=== PATIENT | female | born 1940 | race Hispanic/Latino ===

== ENCOUNTER 2017-08-10 12:56 | Emergency (ER) | payer MEDICARE ==
[2017-08-10 13:17] LABS: APPEARANCE,URINE Clear (CLEAR); BILIRUBIN,URINE Negative (NEGATIVE); COLOR,URINE Yellow (YELLOW); GLUCOSE, URINE (UA) Negative (NEGATIVE); KETONES,URINE Trace mg/dL (NEGATIVE); LEUKOCYTE ESTERASE ,URINE Trace (NEGATIVE); NITRATE,URINE Negative (NEGATIVE); OCCULT BLOOD,URINE Negative (NEGATIVE); PH,URINE 5.5 (5.0-8.0); PROTEIN,URINE Negative (NEGATIVE); UROBILINOGEN,URINE 0.2 mg/dL (0.2-1.0)
[2017-08-10 13:28] LABS: BASOPHILS % (AUTO) 0.5 % (0.0-5.0); EOSINOPHILS % (AUTO) 0.6 % (0.0-8.0); HEMATOCRIT 39.9 % (36-48); LYMPHOCYTES % (AUTO) 7.2 % (21.0-51.0); MEAN CORPUSCULAR HEMOGLOBIN 30.5 pg (27.0-33.0); MEAN CORPUSCULAR HGB CONC 34.4 g/dL (32.0-36.0); MEAN CORPUSCULAR VOLUME 88.5 fL (79-99); MONOCYTES % (AUTO) 5.4 % (3.0-13.0); NEUTROPHILS % (AUTO) 86.3 % (40.0-77.0); PLATELET COUNT (AUTO) 211 K/uL (130-400); RED BLOOD CELL COUNT(AUTO) 4.51 MIL/uL (4.00-5.50); RED CELL DISTRIBUTION WIDTH 12.9 % (11.0-15.5); WHITE BLOOD COUNT (AUTO) 10.6 K/uL (4.8-10.8)
[2017-08-10] MEDS ORDERED: ONDANSETRON HCL 4 MG/2 ML VIAL ONE (13:34)
[2017-08-10] MEDS ORDERED: KETOROLAC TROMETHAMINE 15MG/ML ONE (13:34)
[2017-08-10] MEDS ORDERED: SODIUM CHLORIDE 0.9% 1000ML 1,000 ML IV ONE (13:34)
[2017-08-10 13:38] LABS: CREATININE 0.7 mg/dL (0.5-1.5); POTASSIUM 3.7 mmol/L (3.5-5.1)
[2017-08-10 13:43] LABS: ALBUMIN 3.9 g/dL (3.5-5.0); BILIRUBIN,TOTAL 0.6 mg/dL (0.2-1.0); TOTAL PROTEIN, SERUM 7.8 g/dL (6.0-8.3)
[2017-08-10 13:46] LABS: WBC,URINE None Seen /HPF (0-1)
[2017-08-10 13:47] LABS: BACTERIA,URINE Rare /HPF (None Seen); SQUAMOUS EPITHELIAL CELL,UR Rare /LPF (0-2)
[2017-08-10 13:54] LABS: AMYLASE 43 U/L (25-115); CREATINE KINASE MB < 0.5 ng/mL (0.5-3.6); CREATINE KINASE, TOTAL 53 U/L (21-232); LIPASE 132 U/L (114-286)
[2017-08-10] MEDS ORDERED: LIDOCAINE HCL 2% VISCOUS 15 ML UDCUP ONE (13:56)
[2017-08-10] MEDS ORDERED: MAG HYDROX/AL HYDROX/SIMETH ES 30 ML SUSP UDCUP ONE (13:57)
== END 2017-08-10 14:49 | disposition home or self-care (01) ==
LOC: EDH 12:56
DX: M54.5 Low back pain (principal); J09.X2 Influenza due to identified novel influenza A virus with other respiratory manifestations; K21.9 Gastro-esophageal reflux disease without esophagitis; E11.9 Type 2 diabetes mellitus without complications; I10 Essential (primary) hypertension; R11.2 Nausea with vomiting, unspecified; Z88.6 Allergy status to analgesic agent; Z88.8 Allergy status to other drugs, medicaments and biological substances; Z90.49 Acquired absence of other specified parts of digestive tract
CPT/HCPCS: 36415; 71010; 80053; 81001; 82150; 82550; 82553; 83690; 84484; 85025; 87804 ×2; 93005; 96361; 96374; 96375; 99285; J1885; J2405; J7030

== ENCOUNTER 2018-08-13 15:55 | Emergency (ER) | payer MEDICARE ==
[2018-08-13 17:06] LABS: BASOPHILS % (AUTO) 0.3 % (0.0-5.0); EOSINOPHILS % (AUTO) 0.3 % (0.0-8.0); HEMATOCRIT 41.2 % (36-48); LYMPHOCYTES % (AUTO) 9.3 % (21.0-51.0); MEAN CORPUSCULAR HEMOGLOBIN 30.6 pg (27.0-33.0); MEAN CORPUSCULAR HGB CONC 34.8 g/dL (32.0-36.0); MEAN CORPUSCULAR VOLUME 87.9 fL (79-99); MONOCYTES % (AUTO) 4.3 % (3.0-13.0); NEUTROPHILS % (AUTO) 85.8 % (40.0-77.0); NUCLEATED RED BLOOD CELLS 0.1 % (0.0-0.19); PLATELET COUNT (AUTO) 241 K/uL (130-400); RED BLOOD CELL COUNT(AUTO) 4.69 MIL/uL (4.00-5.50); RED CELL DISTRIBUTION WIDTH 12.9 % (11.0-15.5); WHITE BLOOD COUNT (AUTO) 10.4 K/uL (4.8-10.8)
[2018-08-13 17:12] LABS: CREATININE 0.7 mg/dL (0.5-1.5); POTASSIUM 3.8 mmol/L (3.5-5.1)
[2018-08-13 17:16] LABS: ALBUMIN 3.9 g/dL (3.5-5.0); BILIRUBIN,TOTAL 0.7 mg/dL (0.2-1.0); TOTAL PROTEIN, SERUM 7.9 g/dL (6.0-8.3)
[2018-08-13] MEDS ORDERED: LIDOCAINE HCL 2% VISCOUS 15 ML UDCUP ONE (17:54)
[2018-08-13] MEDS ORDERED: MAG HYDROX/AL HYDROX/SIMETH ES 30 ML SUSP UDCUP ONE (17:55)
[2018-08-13] MEDS ORDERED: ONDANSETRON HCL 4 MG/2 ML VIAL ONE (17:55)
[2018-08-13 18:23] LABS: APPEARANCE,URINE Clear (CLEAR); BILIRUBIN,URINE Negative (NEGATIVE); COLOR,URINE Yellow (YELLOW); GLUCOSE, URINE (UA) Negative (NEGATIVE); KETONES,URINE 15 mg/dL (NEGATIVE); LEUKOCYTE ESTERASE ,URINE Negative (NEGATIVE); NITRATE,URINE Positive (NEGATIVE); OCCULT BLOOD,URINE Trace (NEGATIVE); PROTEIN,URINE Trace (NEGATIVE)
[2018-08-13 18:31] LABS: BACTERIA,URINE Many /HPF (None Seen); RBC,URINE 0-1 /HPF (0-1); SQUAMOUS EPITHELIAL CELL,UR 0-2 /HPF (0-2)
[2018-08-13] MEDS ORDERED: KETOROLAC TROMETHAMINE 15MG/ML ONE (20:05)
[2018-08-13] MEDS ORDERED: CEPHALEXIN 500 MG CAPSULE ONE (22:28)
[2018-08-13] MEDS ORDERED: ACETAMINOPHEN 325 MG TAB ONE (22:44)
== END 2018-08-13 23:08 | disposition home or self-care (01) ==
LOC: EDH 15:55
DX: K21.0 Gastro-esophageal reflux disease with esophagitis (principal); N30.00 Acute cystitis without hematuria; I10 Essential (primary) hypertension; E11.9 Type 2 diabetes mellitus without complications; Z90.49 Acquired absence of other specified parts of digestive tract; Z90.89 Acquired absence of other organs; Z98.890 Other specified postprocedural states
CPT/HCPCS: 36415; 80053; 81001; 83690; 85025; 86677; 96374; 96375; 99283; J1885; J2405

== ENCOUNTER 2019-05-24 16:52 | Emergency (ER) | payer MEDICARE ==
[2019-05-24] MEDS ORDERED: MAG HYDROX/AL HYDROX/SIMETH ES 30 ML SUSP UDCUP ONE (17:20)
[2019-05-24] MEDS ORDERED: ONDANSETRON HCL 4 MG/2 ML VIAL ONE (17:20)
[2019-05-24] MEDS ORDERED: LIDOCAINE HCL 2% VISCOUS 15 ML UDCUP ONE (17:20)
[2019-05-24] MEDS ORDERED: SODIUM CHLORIDE 0.9% 500ML 500 ML IV ONE (17:21)
[2019-05-24 17:23] LABS: BASOPHILS % (AUTO) 0.3 % (0.0-5.0); EOSINOPHILS % (AUTO) 0.8 % (0.0-8.0); HEMATOCRIT 40.9 % (36-48); LYMPHOCYTES % (AUTO) 4.7 % (21.0-51.0); MEAN CORPUSCULAR HEMOGLOBIN 30.4 pg (27.0-33.0); MEAN CORPUSCULAR HGB CONC 34.8 g/dL (32.0-36.0); MEAN CORPUSCULAR VOLUME 87.2 fL (79-99); MONOCYTES % (AUTO) 3.9 % (3.0-13.0); NEUTROPHILS % (AUTO) 90.3 % (40.0-77.0); PLATELET COUNT (AUTO) 255 K/uL (130-400); RED BLOOD CELL COUNT(AUTO) 4.69 MIL/uL (4.00-5.50); RED CELL DISTRIBUTION WIDTH 12.9 % (11.0-15.5); WHITE BLOOD COUNT (AUTO) 10.8 K/uL (4.8-10.8)
[2019-05-24 17:32] LABS: APPEARANCE,URINE Clear (CLEAR); BILIRUBIN,URINE Negative (NEGATIVE); COLOR,URINE Yellow (YELLOW); GLUCOSE, URINE (UA) Negative (NEGATIVE); KETONES,URINE Negative (NEGATIVE); LEUKOCYTE ESTERASE ,URINE Trace (NEGATIVE); NITRATE,URINE Positive (NEGATIVE); OCCULT BLOOD,URINE Negative (NEGATIVE); PROTEIN,URINE Negative (NEGATIVE); UROBILINOGEN,URINE 0.2 mg/dL (0.2-1.0)
[2019-05-24 17:36] LABS: CREATININE 0.8 mg/dL (0.5-1.5); POTASSIUM 4.4 mmol/L (3.5-5.1)
[2019-05-24 17:40] LABS: ALBUMIN 3.7 g/dL (3.5-5.0); BILIRUBIN,DIRECT 0.2 mg/dL (0.0-0.3); BILIRUBIN,TOTAL 0.6 mg/dL (0.2-1.0); TOTAL PROTEIN, SERUM 7.6 g/dL (6.0-8.3)
[2019-05-24 17:40] LABS: RBC,URINE 0-1 /HPF (0-1)
[2019-05-24 17:41] LABS: BACTERIA,URINE Moderate /HPF (None Seen); MUCUS,URINE Rare LPF (None Seen); SQUAMOUS EPITHELIAL CELL,UR Rare /HPF (0-2); YEAST,URINE BUDDING Few /HPF (None Seen)
== END 2019-05-24 19:38 | disposition home or self-care (01) ==
LOC: EDH 16:52
DX: M54.5 Low back pain (principal); I10 Essential (primary) hypertension; K21.9 Gastro-esophageal reflux disease without esophagitis; E11.9 Type 2 diabetes mellitus without complications; Z88.5 Allergy status to narcotic agent; Z91.048 Other nonmedicinal substance allergy status
CPT/HCPCS: 36415; 74176; 80048; 80076; 81001; 82550; 83690; 84484; 85025; 93005; 99285; J2405; J7040

== ENCOUNTER 2019-05-28 20:56 | Emergency (ER) | payer MEDICARE ==
[2019-05-28] MEDS ORDERED: MAG HYDROX/AL HYDROX/SIMETH ES 30 ML SUSP UDCUP ONE ×2 (21:51→23:31)
[2019-05-28] MEDS ORDERED: SODIUM CHLORIDE 0.9% 1000ML 1,000 ML IV ONE (22:08)
[2019-05-28 22:38] LABS: BASOPHILS % (AUTO) 0.3 % (0.0-5.0); EOSINOPHILS % (AUTO) 0.4 % (0.0-8.0); HEMATOCRIT 38.7 % (36-48); LYMPHOCYTES % (AUTO) 10.7 % (21.0-51.0); MEAN CORPUSCULAR HEMOGLOBIN 30.1 pg (27.0-33.0); MEAN CORPUSCULAR VOLUME 85.9 fL (79-99); MONOCYTES % (AUTO) 5.8 % (3.0-13.0); NEUTROPHILS % (AUTO) 82.8 % (40.0-77.0); PLATELET COUNT (AUTO) 291 K/uL (130-400); RED BLOOD CELL COUNT(AUTO) 4.51 MIL/uL (4.00-5.50); RED CELL DISTRIBUTION WIDTH 12.9 % (11.0-15.5); WHITE BLOOD COUNT (AUTO) 9.9 K/uL (4.8-10.8)
[2019-05-28 23:03] LABS: ALBUMIN 3.7 g/dL (3.5-5.0); BILIRUBIN,TOTAL 0.4 mg/dL (0.2-1.0); CREATININE 0.7 mg/dL (0.5-1.5); POTASSIUM 3.5 mmol/L (3.5-5.1); TOTAL PROTEIN, SERUM 7.5 g/dL (6.0-8.3)
[2019-05-28] MEDS ORDERED: LIDOCAINE HCL 2% VISCOUS 15 ML UDCUP ONE (23:31)
== END 2019-05-29 01:10 | disposition home or self-care (01) ==
LOC: EDH 20:56
DX: K29.00 Acute gastritis without bleeding (principal); I10 Essential (primary) hypertension; E11.9 Type 2 diabetes mellitus without complications; K21.9 Gastro-esophageal reflux disease without esophagitis; Z90.49 Acquired absence of other specified parts of digestive tract; Z88.5 Allergy status to narcotic agent; Z88.2 Allergy status to sulfonamides
CPT/HCPCS: 36415; 80053; 83690; 85025; 96361; 96374; 99285; J7030

== ENCOUNTER 2019-06-11 20:59 | Emergency (ER) | payer MEDICARE ==
[2019-06-11 21:38] LABS: BASOPHILS % (AUTO) 0.7 % (0.0-5.0); EOSINOPHILS % (AUTO) 1.1 % (0.0-8.0); HEMATOCRIT 38.3 % (36-48); LYMPHOCYTES % (AUTO) 12.7 % (21.0-51.0); MEAN CORPUSCULAR HEMOGLOBIN 30.1 pg (27.0-33.0); MEAN CORPUSCULAR HGB CONC 34.3 g/dL (32.0-36.0); MEAN CORPUSCULAR VOLUME 87.9 fL (79-99); MONOCYTES % (AUTO) 7.1 % (3.0-13.0); NEUTROPHILS % (AUTO) 78.4 % (40.0-77.0); PLATELET COUNT (AUTO) 251 K/uL (130-400); RED BLOOD CELL COUNT(AUTO) 4.35 MIL/uL (4.00-5.50); RED CELL DISTRIBUTION WIDTH 13.3 % (11.0-15.5); WHITE BLOOD COUNT (AUTO) 9.4 K/uL (4.8-10.8)
[2019-06-11 21:49] LABS: CREATININE 0.9 mg/dL (0.5-1.5); POTASSIUM 4.6 mmol/L (3.5-5.1)
[2019-06-11 21:52] LABS: INR 0.98 (0.85-1.15); PARTIAL THROMBOPLASTIN TIME 27.1 SEC (26.3-35.5); PROTHROMBIN TIME 10.3 SEC (9.6-11.6)
[2019-06-11 21:54] LABS: ALBUMIN 3.7 g/dL (3.5-5.0); BILIRUBIN,TOTAL 0.3 mg/dL (0.2-1.0); TOTAL PROTEIN, SERUM 7.4 g/dL (6.0-8.3)
[2019-06-11 22:04] LABS: APPEARANCE,URINE Clear (CLEAR); BILIRUBIN,URINE Negative (NEGATIVE); COLOR,URINE Yellow (YELLOW); GLUCOSE, URINE (UA) Negative (NEGATIVE); KETONES,URINE Negative (NEGATIVE); LEUKOCYTE ESTERASE ,URINE Trace (NEGATIVE); NITRATE,URINE Negative (NEGATIVE); OCCULT BLOOD,URINE Negative (NEGATIVE); PROTEIN,URINE Negative (NEGATIVE); UROBILINOGEN,URINE 0.2 mg/dL (0.2-1.0)
[2019-06-11 22:11] LABS: BACTERIA,URINE Few /HPF (None Seen); MUCUS,URINE Few LPF (None Seen); RBC,URINE 0-1 /HPF (0-1); SQUAMOUS EPITHELIAL CELL,UR Rare /HPF (0-2)
[2019-06-11] MEDS ORDERED: ONDANSETRON HCL 4 MG/2 ML VIAL ONE (22:39)
== END 2019-06-11 22:50 | disposition home or self-care (01) ==
LOC: EDH 20:59
DX: R10.9 Unspecified abdominal pain (principal); I10 Essential (primary) hypertension; E11.9 Type 2 diabetes mellitus without complications; K21.9 Gastro-esophageal reflux disease without esophagitis; Z88.5 Allergy status to narcotic agent; Z90.49 Acquired absence of other specified parts of digestive tract; Z91.048 Other nonmedicinal substance allergy status
CPT/HCPCS: 36415; 71045; 80053; 81001; 82150; 82550; 83690; 84484; 85025; 85610; 85730; 93005; 96374; 99285; J2405

== ENCOUNTER → 2019-06-13 | Outpatient (CLI) | payer MEDICARE | END | disposition home or self-care (01) | LOC: LAB 13:03 | PROVIDERS: ATTEND Internal Medicine Gastroenterology | DX: R19.7 Diarrhea, unspecified (principal); R74.8 Abnormal levels of other serum enzymes | CPT/HCPCS: 36415; 87507 ==

== ENCOUNTER 2019-10-20 06:48 | Emergency (ER) | payer MEDICARE ==
[2019-10-20 07:20] LABS: RAPID GROUP A STREP NEGATIVE (NEGATIVE)
[2019-10-20] MEDS ORDERED: DEXAMETHASONE SOD PHOSPHATE 4 MG/ML 5ML VIAL ONE (07:32)
[2019-10-20] MEDS ORDERED: CEFTRIAXONE SODIUM 1 GM ONE (07:33)
[2019-10-20] MEDS ORDERED: LIDOCAINE HCL-MPF 1% 2ML VIAL ONE (07:33)
== END 2019-10-20 08:16 | disposition home or self-care (01) ==
LOC: EDH 06:48
DX: H66.92 Otitis media, unspecified, left ear (principal); J02.9 Acute pharyngitis, unspecified; E11.9 Type 2 diabetes mellitus without complications; M79.7 Fibromyalgia; I10 Essential (primary) hypertension; Z88.6 Allergy status to analgesic agent
CPT/HCPCS: 87804 ×2; 87880; 96372 ×2; 99284; J0696; J1100; J3490

== ENCOUNTER 2020-06-21 23:10 | Observation (INO) | payer MEDICARE ==
[~2020-06-21] VITALS: Ht 154.9 cm; Wt 65.6 kg
[2020-06-21] MEDS ORDERED: ONDANSETRON HCL 4 MG/2 ML VIAL ONE (23:43)
[2020-06-21] MEDS ORDERED: FAMOTIDINE/PF 20 MG/2 ML VIAL IV ONE (23:43)
[2020-06-21] MEDS ORDERED: SODIUM CHLORIDE 0.9% 1000ML 1,000 ML IV ONE (23:44)
[2020-06-21 23:49] LABS: BASOPHILS % (AUTO) 0.5 % (0.0-5.0); EOSINOPHILS % (AUTO) 0.5 % (0.0-8.0); HEMATOCRIT 38.3 % (36-48); LYMPHOCYTES % (AUTO) 11.2 % (21.0-51.0); MEAN CORPUSCULAR HEMOGLOBIN 29.9 pg (27.0-33.0); MEAN CORPUSCULAR VOLUME 85.5 fL (79-99); MONOCYTES % (AUTO) 4.1 % (3.0-13.0); NEUTROPHILS % (AUTO) 83.3 % (40.0-77.0); PLATELET COUNT (AUTO) 280 K/uL (130-400); RED BLOOD CELL COUNT(AUTO) 4.48 MIL/uL (4.00-5.50); RED CELL DISTRIBUTION WIDTH 12.1 % (11.0-15.5); WHITE BLOOD COUNT (AUTO) 10.9 K/uL (4.8-10.8)
[2020-06-22 00:07] LABS: CREATININE 0.8 mg/dL (0.5-1.5); POTASSIUM 3.8 mmol/L (3.5-5.1)
[2020-06-22 00:12] LABS: BILIRUBIN,TOTAL 0.4 mg/dL (0.2-1.0); TOTAL PROTEIN, SERUM 7.4 g/dL (6.0-8.3)
[2020-06-22] MEDS ORDERED: MAG HYDROX/AL HYDROX/SIMETH ES 30 ML SUSP UDCUP ONE (00:21)
[2020-06-22] MEDS ORDERED: LIDOCAINE HCL 2% VISCOUS 15 ML UDCUP ONE (00:21)
[2020-06-22 00:56] LABS: APPEARANCE,URINE Clear (CLEAR); BILIRUBIN,URINE Negative (NEGATIVE); COLOR,URINE Yellow (YELLOW); GLUCOSE, URINE (UA) Negative (NEGATIVE); KETONES,URINE Negative (NEGATIVE); LEUKOCYTE ESTERASE ,URINE Negative (NEGATIVE); NITRATE,URINE Negative (NEGATIVE); OCCULT BLOOD,URINE Negative (NEGATIVE); PH,URINE 8.5 (5.0-8.0); PROTEIN,URINE Negative (NEGATIVE); UROBILINOGEN,URINE 0.2 mg/dL (0.2-1.0)
[2020-06-22] MEDS ORDERED: ONDANSETRON HCL 4 MG/2 ML VIAL ONE ×3 (01:17→20:56)
[2020-06-22] MEDS ORDERED: MORPHINE SULFATE 4 MG/1ML SYG ONE ×2 (01:17→07:17)
[2020-06-22] MEDS ORDERED: IOHEXOL-350 75 ML VIAL IV ONE (01:35)
[2020-06-22] MEDS ORDERED: HYDRALAZINE HCL 20 MG/ML VIAL ONE ×2 (03:29→13:36)
[2020-06-22] MEDS ORDERED: SODIUM CHLORIDE 0.9% 1000ML 1,000 ML IV SCH (04:30)
[2020-06-22] MEDS ORDERED: MORPHINE SULFATE 2 MG/ML 1ML SYG IV PRN (04:30)
[2020-06-22] MEDS ORDERED: HYDRALAZINE HCL 20 MG/ML VIAL IV PRN ×2 (04:30→09:30)
[2020-06-22] MEDS ORDERED: HYDROCODONE/ACETAMINOPHEN 5/325 MG TAB PO PRN (04:30)
[2020-06-22] MEDS ORDERED: CEFTRIAXONE SODIUM 1 GM IV SCH (04:30)
[2020-06-22] MEDS ORDERED: ZOLPIDEM TARTRATE 5 MG TAB PO PRN (04:30)
[2020-06-22] MEDS ORDERED: ONDANSETRON HCL 4 MG/2 ML VIAL IV PRN (04:30)
[2020-06-22] MEDS ORDERED: METRONIDAZOLE 500MG/100ML BAG 100 ML IV SCH (04:30)
[2020-06-22] MEDS ORDERED: ACETAMINOPHEN 325 MG TAB PO PRN ×2 (04:30)
[2020-06-22] MEDS ORDERED: NITROGLYCERIN 0.4 MG SL TAB SL PRN (04:30)
[2020-06-22] MEDS ORDERED: SIMETHICONE 80 MG TAB.CHEW ONE (04:48)
[2020-06-22] MEDS ORDERED: CEFTRIAXONE SODIUM 1 GM ONE (05:13)
[2020-06-22] MEDS ORDERED: METRONIDAZOLE 500MG/100ML BAG 100 ML ONE ×2 (05:13→13:36)
[2020-06-22] MEDS ORDERED: SODIUM CHLORIDE 0.9% 1000ML 1,000 ML IV ONE (05:14)
[2020-06-22 06:07] LABS: BASOPHILS % (AUTO) 0.3 % (0.0-5.0); EOSINOPHILS % (AUTO) 0.2 % (0.0-8.0); HEMATOCRIT 37.7 % (36-48); LYMPHOCYTES % (AUTO) 14.5 % (21.0-51.0); MEAN CORPUSCULAR HEMOGLOBIN 29.7 pg (27.0-33.0); MEAN CORPUSCULAR HGB CONC 34.5 g/dL (32.0-36.0); MEAN CORPUSCULAR VOLUME 86.1 fL (79-99); MONOCYTES % (AUTO) 6.2 % (3.0-13.0); NEUTROPHILS % (AUTO) 77.9 % (40.0-77.0); PLATELET COUNT (AUTO) 269 K/uL (130-400); RED BLOOD CELL COUNT(AUTO) 4.38 MIL/uL (4.00-5.50); RED CELL DISTRIBUTION WIDTH 12.1 % (11.0-15.5); WHITE BLOOD COUNT (AUTO) 10.2 K/uL (4.8-10.8)
[2020-06-22 06:22] LABS: HEMOGLOBIN A1C 6.7 % (4.0-6.0)
[2020-06-22 06:26] LABS: ALBUMIN 3.8 g/dL (3.5-5.0); BILIRUBIN,TOTAL 0.9 mg/dL (0.2-1.0); CREATININE 0.7 mg/dL (0.5-1.5); POTASSIUM 3.7 mmol/L (3.5-5.1); TOTAL PROTEIN, SERUM 7.7 g/dL (6.0-8.3)
[2020-06-22] MEDS ORDERED: FAMOTIDINE/PF 20 MG/2 ML VIAL IV ONE (06:43)
[2020-06-22] MEDS ORDERED: ENOXAPARIN SODIUM 30 MG/0.3 ML SQ ONE ×2 (09:32→20:56)
[2020-06-22] MEDS ORDERED: INSULIN HUMULIN R 100 UNIT/ML 3ML SQ SCH (11:30)
[2020-06-22] MEDS ORDERED: ACETAMINOPHEN 325 MG TAB ONE ×2 (13:36→20:57)
[2020-06-22] MEDS: FAMOTIDINE/PF 20 MG/2 ML VIAL IV SCH (21:00)
[2020-06-22 22:35] VITALS: BP 169/77
[2020-06-23 00:12] VITALS: BP 145/71
[2020-06-23 03:48] VITALS: BP 145/74
--- NOTE | 2020-06-23 04:13 | NUR ---
NOTE PT C/O SEVERE PAIN, ALL OVER HER BODY. PT UNABLE TO DESCRIBE PAIN. ADMIN PAIN MED PER OCT. WILL CONT TO MONITOR PT.
[2020-06-23 04:16] VITALS: BP 158/69
[2020-06-23 06:00] LABS: BASOPHILS % (AUTO) 0.5 % (0.0-5.0); EOSINOPHILS % (AUTO) 1.1 % (0.0-8.0); HEMATOCRIT 34.2 % (36-48); LYMPHOCYTES % (AUTO) 12.6 % (21.0-51.0); MEAN CORPUSCULAR HEMOGLOBIN 29.4 pg (27.0-33.0); MEAN CORPUSCULAR HGB CONC 33.9 g/dL (32.0-36.0); MEAN CORPUSCULAR VOLUME 86.6 fL (79-99); MONOCYTES % (AUTO) 7.2 % (3.0-13.0); NEUTROPHILS % (AUTO) 78.2 % (40.0-77.0); PLATELET COUNT (AUTO) 255 K/uL (130-400); RED BLOOD CELL COUNT(AUTO) 3.95 MIL/uL (4.00-5.50); RED CELL DISTRIBUTION WIDTH 12.3 % (11.0-15.5); WHITE BLOOD COUNT (AUTO) 9.2 K/uL (4.8-10.8)
[2020-06-23 08:00] VITALS: BP 153/68
[2020-06-23] MEDS: FAMOTIDINE/PF 20 MG/2 ML VIAL IV SCH ×3 (09:00→10:31)
[2020-06-23] MEDS: ENOXAPARIN SODIUM 30 MG/0.3 ML SQ SCH ×2 (09:00→10:30)
[2020-06-23] MEDS ORDERED: LISINOPRIL 5 MG TABLET PO SCH ×2 (09:15→10:58)
--- NOTE | 2020-06-23 10:00 | NUR ---
PT STATED UNDERSTANDING OF ALL D/C INSTRUCTIONS TO F/U WITH HER PCP IN REGARDS TO ABNORMAL CT RESULTS.
[2020-06-23 10:01] LABS: THYROID STIMULATING HORMONE < 0.01 uIU/mL (0.36-3.74)
== END 2020-06-23 11:00 | disposition home or self-care (01) ==
LOC: EDH 23:10 → EDHIP 06-22 04:23 → 3AH 06-22 22:29
PROVIDERS: ADMIT Internal Medicine; ATTEND Internal Medicine
DX: K52.9 Noninfective gastroenteritis and colitis, unspecified (principal); R11.2 Nausea with vomiting, unspecified; D72.829 Elevated white blood cell count, unspecified; M54.5 Low back pain; I10 Essential (primary) hypertension; E11.9 Type 2 diabetes mellitus without complications; K21.9 Gastro-esophageal reflux disease without esophagitis; M79.7 Fibromyalgia; N85.8 Other specified noninflammatory disorders of uterus; Z79.84 Long term (current) use of oral hypoglycemic drugs; Z79.899 Other long term (current) drug therapy; Z88.5 Allergy status to narcotic agent; Z91.048 Other nonmedicinal substance allergy status
CPT/HCPCS: 36415 ×3; 74177; 80053 ×2; 81003; 82150; 82550; 82948 ×2; 83036; 83690; 84145; 84439; 84443; 84481; 84484 ×2; 85025 ×3; 87040 ×2; 93005 ×2; 96372; 96374; 96375; 99285; G0378 ×21; J0360 ×2; J0696 ×2; J1650 ×2; J2270 ×2; J2405 ×5; J3490 ×6; J7030 ×2; Q9967

== ENCOUNTER 2020-09-24 20:18 | Emergency (ER) | payer OTHER, MEDICARE ==
[2020-09-24] MEDS ORDERED: MAG/ALUM/SIMETH 30 ML UDCUP ONE (20:34)
[2020-09-24] MEDS ORDERED: LIDOCAINE HCL 2% VISCOUS 15 ML UDCUP ONE (20:34)
[2020-09-24] MEDS ORDERED: FAMOTIDINE 20MG TAB ONE (20:34)
[2020-09-24 20:59] LABS: APPEARANCE,URINE CLOUDY (CLEAR); BILIRUBIN,URINE NEGATIVE (NEGATIVE); COLOR,URINE YELLOW (YELLOW); GLUCOSE, URINE (UA) NEGATIVE (NEGATIVE); KETONES,URINE 40 mg/dL (NEGATIVE); LEUKOCYTE ESTERASE ,URINE TRACE (NEGATIVE); NITRATE,URINE POSITIVE (NEGATIVE); OCCULT BLOOD,URINE NEGATIVE (NEGATIVE); PH,URINE 7.5 (5.0-8.0); PROTEIN,URINE TRACE mg/dL (NEGATIVE); UROBILINOGEN,URINE 0.2 mg/dL (0.2-1.0)
[2020-09-24 21:00] LABS: BASOPHILS % (AUTO) 0.3 % (0.0-5.0); EOSINOPHILS % (AUTO) 0.2 % (0.0-8.0); HEMATOCRIT 40.6 % (36-48); LYMPHOCYTES % (AUTO) 4.8 % (21.0-51.0); MEAN CORPUSCULAR HGB CONC 34.7 g/dL (32.0-36.0); MEAN CORPUSCULAR VOLUME 86.4 fL (79-99); MONOCYTES % (AUTO) 4.6 % (3.0-13.0); NEUTROPHILS % (AUTO) 89.4 % (40.0-77.0); PLATELET COUNT (AUTO) 275 K/uL (130-400); RED CELL DISTRIBUTION WIDTH 12.2 % (11.0-15.5); WHITE BLOOD COUNT (AUTO) 17.9 K/uL (4.8-10.8)
[2020-09-24 21:11] LABS: POTASSIUM 3.9 mmol/L (3.5-5.1)
[2020-09-24 21:12] LABS: BACTERIA,URINE Moderate /HPF (None Seen); RBC,URINE None Seen /HPF (0-1)
[2020-09-24 21:14] LABS: SQUAMOUS EPITHELIAL CELL,UR 0-2 /HPF (0-2)
[2020-09-24 21:17] LABS: BILIRUBIN,TOTAL 0.6 mg/dL (0.2-1.0); TOTAL PROTEIN, SERUM 7.7 g/dL (6.0-8.3)
[2020-09-24] MEDS ORDERED: CEFTRIAXONE 1G VIAL ONE (21:38)
[2020-09-24 22:02] LABS: B-TYPE NATRIURETIC PEPTIDE 12 pg/mL (0-100)
[2020-09-24] MEDS ORDERED: DICYCLOMINE HCL 20 MG TAB ONE (22:30)
== END 2020-09-24 22:48 | disposition home or self-care (01) ==
LOC: EDH 20:18
DX: K52.9 Noninfective gastroenteritis and colitis, unspecified (principal); N30.90 Cystitis, unspecified without hematuria; K29.70 Gastritis, unspecified, without bleeding; E11.9 Type 2 diabetes mellitus without complications; I10 Essential (primary) hypertension; Z90.49 Acquired absence of other specified parts of digestive tract; Z91.048 Other nonmedicinal substance allergy status; Z88.5 Allergy status to narcotic agent
CPT/HCPCS: 36415; 71045; 74176; 80053; 81001; 83690; 83880; 84484; 85025; 87077; 87088; 87186; 93005; 96365; 99285; J0696

== ENCOUNTER → 2021-01-02 | Outpatient (CLI) | payer OTHER, MEDICARE | END | disposition home or self-care (01) | LOC: RAH 08:48 | PROVIDERS: ATTEND Internal Medicine Gastroenterology | DX: N28.1 Cyst of kidney, acquired (principal); R16.0 Hepatomegaly, not elsewhere classified; Z90.49 Acquired absence of other specified parts of digestive tract | CPT/HCPCS: 76700 ==

== ENCOUNTER 2021-09-22 01:03 | Emergency (ER) | payer OTHER, MEDICARE ==
[~2021-09-22] VITALS: Ht 154.9 cm; Wt 64.4 kg
[2021-09-22 02:00] VITALS: BP 160/75
[2021-09-22] MEDS ORDERED: MAG/ALUM/SIMETH 30 ML UDCUP PO ONE ×2 (02:30→04:00)
[2021-09-22] MEDS ORDERED: LIDOCAINE HCL 2% VISCOUS 15 ML UDCUP PO ONE ×2 (02:30→04:00)
[2021-09-22] MEDS ORDERED: LIDOCAINE HCL 2% VISCOUS 15 ML UDCUP ONE (02:32)
[2021-09-22] MEDS ORDERED: MAG/ALUM/SIMETH 30 ML UDCUP ONE (02:32)
[2021-09-22] MEDS ORDERED: PRED20TA3 PO (03:12)
[2021-09-22] MEDS ORDERED: BENZ-39 PO (03:12)
[2021-09-22] MEDS ORDERED: ALBU8.5H8 IH (03:12)
[2021-09-22] MEDS ORDERED: PREDNISONE 20 MG TABLET PO ONE (03:30)
== END 2021-09-22 03:35 | disposition home or self-care (01) ==
LOC: EDH 01:03
DX: U07.1 COVID-19 (principal); J02.9 Acute pharyngitis, unspecified; R05.9 Cough, unspecified; I10 Essential (primary) hypertension; E11.9 Type 2 diabetes mellitus without complications; Z90.49 Acquired absence of other specified parts of digestive tract; Z88.5 Allergy status to narcotic agent; Z91.048 Other nonmedicinal substance allergy status; Z79.899 Other long term (current) drug therapy
CPT/HCPCS: 71045; 87635; 87804 ×2; 93005 ×2; 99285; C9803

== ENCOUNTER 2022-08-27 05:21 | Emergency (ER) | payer OTHER, MEDICARE ==
[~2022-08-27] VITALS: Ht 157.5 cm; Wt 61.7 kg
[~2022-08-27 05:21] MED LIST: ALBU8.5H8 IH; BENZ-39 PO; PRED20TA3 PO
[2022-08-27] MEDS ORDERED: ONDANSETRON 4MG INJ IVP ONE (05:30)
[2022-08-27] MEDS ORDERED: MORPHINE 2 MG SYG IVP ONE (05:30)
[2022-08-27] MEDS ORDERED: LACTATED RINGERS 1000ML 1,000 ML IV ONE (05:30)
[2022-08-27 05:38] LABS: BASOPHILS % (AUTO) 0.1 % (0.0-5.0); EOSINOPHILS % (AUTO) 0.1 % (0.0-8.0); HEMATOCRIT 37.7 % (36-48); LYMPHOCYTES % (AUTO) 3.3 % (21.0-51.0); MEAN CORPUSCULAR HEMOGLOBIN 29.9 pg (27.0-33.0); MEAN CORPUSCULAR VOLUME 85.5 fL (79-99); MONOCYTES % (AUTO) 4.4 % (3.0-13.0); NEUTROPHILS % (AUTO) 91.6 % (40.0-77.0); PLATELET COUNT (AUTO) 253 K/uL (130-400); RED BLOOD CELL COUNT(AUTO) 4.41 MIL/uL (4.00-5.50); RED CELL DISTRIBUTION WIDTH 12.5 % (11.0-15.5); WHITE BLOOD COUNT (AUTO) 14.7 K/uL (4.8-10.8)
[2022-08-27 05:52] LABS: ALBUMIN 3.7 g/dL (3.5-5.0); CREATININE 0.6 mg/dL (0.5-1.5); POTASSIUM 4.5 mmol/L (3.5-5.1); TOTAL PROTEIN, SERUM 6.9 g/dL (6.0-8.3)
[2022-08-27] MEDS ORDERED: DICYCLOMINE HCL 10 MG/5 ML ML PO ONE (06:00)
[2022-08-27] MEDS ORDERED: LIDOCAINE HCL 2% VISCOUS 15 ML UDCUP PO ONE (06:00)
[2022-08-27] MEDS ORDERED: PANTOPRAZOLE 40 MG/VIAL IV ONE (06:00)
[2022-08-27] MEDS ORDERED: ZOSYN 3.375GM +NS 50ML IV ONE (06:00)
[2022-08-27] MEDS ORDERED: MAG/ALUM/SIMETH 30 ML UDCUP PO ONE (06:00)
[2022-08-27] MEDS ORDERED: IOHEXOL 350 MG/ML 100ML INFUS..BTL IV ONE (07:46)
[2022-08-27] MEDS ORDERED: KETOROLAC 30MG VIAL (30MG/ML) IVP ONE (09:30)
[2022-08-27 12:24] VITALS: BP 152/64
== END 2022-08-27 12:25 | disposition home or self-care (01) ==
LOC: EDH 05:21
DX: R10.13 Epigastric pain (principal); Z20.822 Contact with and (suspected) exposure to COVID-19; R11.2 Nausea with vomiting, unspecified; R19.7 Diarrhea, unspecified; Z88.5 Allergy status to narcotic agent; Z88.8 Allergy status to other drugs, medicaments and biological substances; I10 Essential (primary) hypertension; E11.9 Type 2 diabetes mellitus without complications; Z90.49 Acquired absence of other specified parts of digestive tract; Z98.890 Other specified postprocedural states
CPT/HCPCS: 99285; 84484; 80053; 83690; 85025; 87040 ×2; 83605; 36415; 87635; 71045; 74177; 96365; 96361; 96375; 93005; C9803; J7120; J2405; J1885; J2543; C9113; Q9967

== ENCOUNTER 2022-11-16 11:52 | Emergency (ER) | payer OTHER, MEDICARE ==
[~2022-11-16] VITALS: Ht 152.4 cm; Wt 64.9 kg
[2022-11-16] MEDS ORDERED: ACETAMINOPHEN 500 MG TABLET PO ONE (15:30)
[2022-11-16 15:52] VITALS: BP 152/65
[2022-11-16] MEDS ORDERED: IBUP-2070 PO (16:02)
== END 2022-11-16 16:17 | disposition home or self-care (01) ==
LOC: EDH 11:52
DX: S80.02XA Contusion of left knee, initial encounter (principal); S80.01XA Contusion of right knee, initial encounter; S60.221A Contusion of right hand, initial encounter; I10 Essential (primary) hypertension; E11.9 Type 2 diabetes mellitus without complications; Z04.3 Encounter for examination and observation following other accident; Z90.49 Acquired absence of other specified parts of digestive tract; Z88.5 Allergy status to narcotic agent; Z88.8 Allergy status to other drugs, medicaments and biological substances; Z79.899 Other long term (current) drug therapy; W18.39XA Other fall on same level, initial encounter; Y93.89 Activity, other specified; Y92.89 Other specified places as the place of occurrence of the external cause; Y99.8 Other external cause status
CPT/HCPCS: 73130; 73562

== ENCOUNTER 2022-12-02 02:27 | Emergency (ER) | payer OTHER, MEDICARE ==
[~2022-12-02] VITALS: Ht 152.4 cm; Wt 65.3 kg
[~2022-12-02 02:27] MED LIST changes: +IBUP-2070 PO
[2022-12-02 02:59] LABS: BASOPHILS % (AUTO) 0.5 % (0.0-5.0); EOSINOPHILS % (AUTO) 0.3 % (0.0-8.0); HEMATOCRIT 36.8 % (36-48); MEAN CORPUSCULAR HEMOGLOBIN 29.3 pg (27.0-33.0); MEAN CORPUSCULAR HGB CONC 35.3 g/dL (32.0-36.0); MEAN CORPUSCULAR VOLUME 83.1 fL (79-99); MONOCYTES % (AUTO) 5.7 % (3.0-13.0); PLATELET COUNT (AUTO) 310 K/uL (130-400); RED BLOOD CELL COUNT(AUTO) 4.43 MIL/uL (4.00-5.50); WHITE BLOOD COUNT (AUTO) 8.7 K/uL (4.8-10.8)
[2022-12-02] MEDS ORDERED: LIDOCAINE HCL 2% VISCOUS 15 ML UDCUP PO ONE (03:00)
[2022-12-02] MEDS ORDERED: MAG/ALUM/SIMETH 30 ML UDCUP PO ONE (03:00)
[2022-12-02 03:01] LABS: APPEARANCE,URINE CLEAR (CLEAR); BILIRUBIN,URINE NEGATIVE (NEGATIVE); COLOR,URINE LIGHT-YELLOW (YELLOW); GLUCOSE, URINE (UA) 200 mg/dL (NEGATIVE); KETONES,URINE >=80 mg/dL (NEGATIVE); LEUKOCYTE ESTERASE ,URINE NEGATIVE Leu/uL (NEGATIVE); NITRATE,URINE NEGATIVE (NEGATIVE); OCCULT BLOOD,URINE NEGATIVE (NEGATIVE); PH,URINE 5.5 (5.0-8.0); PROTEIN,URINE 30 mg/dL (NEGATIVE); UROBILINOGEN,URINE 0.2 mg/dL (0.2-1.0)
[2022-12-02 03:06] LABS: SQUAMOUS EPITHELIAL CELL,UR RARE /HPF (0-2)
[2022-12-02] MEDS: ONDANSETRON 4MG INJ ONE ×2 (03:15→03:17)
[2022-12-02] MEDS ORDERED: ONDANSETRON 4MG INJ IVP ONE (03:30)
[2022-12-02 04:38] LABS: ALBUMIN 3.6 g/dL (3.5-5.0); CREATININE 0.9 mg/dL (0.5-1.5); POTASSIUM 3.8 mmol/L (3.5-5.1); TOTAL PROTEIN, SERUM 7.6 g/dL (6.0-8.3)
[2022-12-02] MEDS ORDERED: SUCRALFATE 1 GM TABLET PO SCH (05:00)
[2022-12-02] MEDS ORDERED: IOHEXOL 350 MG/ML 100ML INFUS..BTL IV ONE (06:29)
[2022-12-02] MEDS ORDERED: LIDOCAINE 5% TOPICAL PATCH TP ONE (07:30)
[2022-12-02] MEDS ORDERED: 0.9%NACL 1000ML 1,000 ML IV ONE (07:30)
[2022-12-02] MEDS ORDERED: KETOROLAC 15MG/ML VIAL (15MG/ML) IV ONE (07:30)
[2022-12-02] MEDS ORDERED: TRAM50TA4 PO (08:11)
[2022-12-02 08:46] VITALS: BP 180/61
== END 2022-12-02 09:03 | disposition home or self-care (01) ==
LOC: EDH 02:27
DX: R10.13 Epigastric pain (principal); I10 Essential (primary) hypertension; M79.7 Fibromyalgia; E11.9 Type 2 diabetes mellitus without complications; Z88.8 Allergy status to other drugs, medicaments and biological substances; Z79.899 Other long term (current) drug therapy; Z90.49 Acquired absence of other specified parts of digestive tract
CPT/HCPCS: 99285; 74174; 96374; 96361; 96375; 84484; 80053; 83690; 85025; 83605; 81001; 36415; 93005; J7030; J2405; J1885; Q9967

== ENCOUNTER → 2024-03-01 | Outpatient (CLI) | payer OTHER, MEDICARE ==
[~2024-03-01] MED LIST changes: +TRAM50TA4 PO
== END ==
LOC: RAH 10:27
PROVIDERS: ATTEND Internal Medicine
DX: E04.1 Nontoxic single thyroid nodule (principal); E05.90 Thyrotoxicosis, unspecified without thyrotoxic crisis or storm
CPT/HCPCS: 78014; A9516

== ENCOUNTER → 2024-10-28 | Outpatient (CLI) | payer OTHER, MEDICARE ==
--- NOTE | 2024-10-28 16:29 | HMCIMG ---
Exam Type: LUMBAR SPINE 2-3VWS Clinical Information: LBP Comparison: None Findings: Exam of the lumbosacral spine demonstrates no evidence of fracture or subluxation. There are moderate spondylitic changes. The facet joints show moderate degenerative changes. The alignment of the spine is normal. The disc spaces are intact. There is osteopenia. Impression: Spondylitic changes and degenerative changes of the apophyseal joints as noted.
== END | disposition home or self-care (01) ==
LOC: OIH 15:17
PROVIDERS: ATTEND Family Medicine
DX: M47.816 Spondylosis without myelopathy or radiculopathy, lumbar region (principal); M85.88 Other specified disorders of bone density and structure, other site; M54.50 Low back pain, unspecified
CPT/HCPCS: 72100

== ENCOUNTER 2025-03-09 19:09 | Observation (INO) | payer OTHER, MEDICARE ==
[~2025-03-09] VITALS: Ht 154.9 cm; Wt 63.1 kg
--- NOTE | 2025-03-09 19:22 | EKG ---
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
[2025-03-09 19:33] LABS: IMMATURE GRANULOCYTE ABSOLUTE 0.05 K/uL (0-1); NUCLEATED RED BLOOD CELLS 0.0 % (0.0-0.19); PLATELET COUNT (AUTO) 299 K/uL (130-400); RED BLOOD CELL COUNT(AUTO) 4.74 MIL/uL (4.00-5.50); RED CELL DISTRIBUTION WIDTH 12.4 % (11.0-15.5); WHITE BLOOD COUNT (AUTO) 10.1 K/uL (4.8-10.8)
[2025-03-09 19:40] LABS: CREATININE 0.8 mg/dL (0.5-1.0); GLOMERULAR FILTR. RATE CALC 74.0 mL/min (>90); GLUCOSE,RANDOM 350.0 mg/dL (70-105); SODIUM SERUM 139.0 mmol/L (136-145); UREA NITROGEN, BLOOD 15.0 mg/dL (7-18)
[2025-03-09 19:49] LABS: CREATINE KINASE, TOTAL 30.0 U/L (21-232)
--- NOTE | 2025-03-09 19:51 | ERN ---
ED Note History of Present Illness Stated Complaint: CHEST PAIN, ESOPHAGEAL REFLEX Chief Complaint: Chest Pain Time Seen by MD: 19:38 Dictation: PATIENT IS AN 84-YEAR-OLD FEMALE WITH A HISTORY OF GASTRITIS AND GERD COMING IN TODAY WITH EPIGASTRIC PAIN THAT RADIATES UP TO HER THROAT AND DOWN TO HER UMBILICAL CORD ONSET YESTERDAY. SHE STATES IT IS WORSE AFTER EATING. SHE STATES SHE HAS HAD MULTIPLE GASTROENTEROLOGY REFERRALS, HAS HAD A RECENT ENDOSCOPY AND COLONOSCOPY THREE MONTHS AGO. SHE STATES THEY FOUND TWO POLYPS AND REMOVE THOSE. SHE STATES HOWEVER SHE ONLY TAKES HER PPI MEDICATION WHEN SHE THINKS SHE NEEDS IT. NO CHEST PAIN NO BACK PAIN NO SOB. ADDITIONALLY BLOOD PRESSURE IS GREATER THAN 200 SYSTOLIC STATES SHE HAS NOT TAKEN HER HYPERTENSIVE MEDICATIONS TODAY BECAUSE OF THE WAY HER STOMACH FELT. Pain started yesterday. Allergies: Coded Allergies: adhesive (Unverified Allergy, Unknown, 03/30/19) codeine (Unverified Adverse Reaction, Severe, SHORTNESS OF BREATH, 04/27/13 ) CARDIAC ARREST Home Meds Active Scripts Tramadol Hcl (Tramadol HCl) 50 Mg Tablet, 50 MG PO TID, #15 TAB Prov:MILKA GUIDO MD 12/02/22 Ibuprofen (Ibuprofen) 600 Mg Tablet, 600 MG PO Q6H PRN for PAIN, #30 TAB Prov:EVERETT DUTTA 11/16/22 Benzonatate (Tessalon Perles) 100 Mg Cap, 100 MG PO TIDP, #15 CAP 0 Refills Prov:GEORGETTE RORDIGUEZ MD 09/22/21 Albuterol Sulfate (Proair Hfa) 8.5 Gm Hfa.aer.ad, 2 PUFF IH Q4HPRN, #1 INHALER 0 Refills Prov:GEORGETTE RODRIGUEZ MD 09/22/21 Prednisone (Prednisone) 20 Mg Tablet, 1 TAB PO DAILY for 3 Days, #3 TAB 0 Refills TAKE 1 TAB BY MOUTH THREE TIMES PER DAY X3 DAYS, THEN TAKE 1 TAB BY MOUTH TWICE A DAY X2 DAYS, THEN TAKE 1 TAB BY MOUTH ONCE A DAY X1 DAY. Prov:GEORGETTE RODRIGUEZ MD 09/22/21 Past Medical History Past Medical History: Diabetes-Type II, Fibromyalgia, GERD, Hypertension Surgical History: Cholecystectomy, Family History: Negative Social History: Negative History: Not Applicable RN Note Reviewed/Agreed w/PFSH: Yes Review of System Dictation CONSTITUTIONAL: NEGATIVE EXCEPT FOR HPI HEAD/FACE: NEGATIVE EXCEPT FOR HPI EENT: NEGATIVE EXCEPT FOR HPI RESPIRATORY: NEGATIVE EXCEPT FOR HPI GASTROINTESTINAL/ABDOMINAL: NEGATIVE EXCEPT FOR HPI EPIGASTRIC PAIN GENITOURINARY: NEGATIVE EXCEPT FOR HPI MUSCULOSKELETAL: NEGATIVE EXCEPT FOR HPI INTEGUMENTARY: NEGATIVE EXCEPT FOR HPI NEUROLOGICAL/PSYCH: NEGATIVE EXCEPT FOR HPI HEMATOLOGIC/LYMPHATIC: NEGATIVE EXCEPT FOR HPI ALL SYSTEMS NEGATIVE, EXCEPT NOTED ABOVE. 13 POINT REVIEW OF SYSTEMS ASSESSED AND ALL NEGATIVE EXCEPT FOR ABOVE. Initial Vital Sign VS Vital Signs Date Time Temp Pulse Resp B/P (MAP) Pulse Ox O2 Delivery O2 Flow Rate FiO2 03/09/25 19:10 98.6 87 20 203/90 95 Room Air 03/09/25 19:43 0 21 Physical Exam Dictation VITAL SIGNS REVIEWED GENERAL APPEARANCE: ALERT, ORIENTED X 3, MODERATE ACUTE DISTRESS, WELL DEVELOPED, NOURISHED. HEAD AND FACE: NON-TRAUMATIC. EYES: PERRL, PINK CONJUNCTIVAS, EYELID NO TRAUMA, ANTERIOR CHAMBER WITH ARCUS SENILIS. EARS: PINNAS INTACT AND NO SIGNS OF TRAUMA OR ERYTHEMA EAR CANALS CLEAR AND NO DISCHARGE TM NO ERYTHEMA NOSE: NO DISCHARGE, NO BLEEDING. OROPHARYNX: MOUTH NORMAL, TONGUE PINK, PHARYNX CLEAR,NO ERYTHEMA, TONSILS NO EXUDATES, NO ABSCESSES NOTED, MUCOUS MEMBRANE MOIST NECK: SUPPLE, NON-TENDER, NO THYROMEGALY, NO MASSES, NO JVD, NO BRUITS BREAST:DEFERRED CHEST:NO TENDERNESS, NO CREPITUS, NO PARADOXICAL MOVEMENT, NO RETRACTIONS LUNGS:CLEAR, WELL-VENTILATED, SYMMETRIC, NO RALES, NO WHEEZING, NO RHONCHI, NO STRIDOR, GOOD BREATH SOUNDS BILATERALLY HEART: REGULAR RATE, REGULAR RHYTHM, NO MURMUR, NO GALLOPS VASCULAR: NO PERIPHERAL EDEMA, ABDOMEN: SOFT, POSITIVE BOWEL SOUNDS, NONDISTENDED, NO GUARDING, EPIGASTRIC PAIN WITH PALPATION NO REBOUND, NO MASSES NO HEPATOMEGALY, NO SPLENOMEGALY, NO WILLS'S SIGN, NO HERNIAS. RECTAL: DEFERRED GENITAL: DEFERRED NEUROLOGICAL: NORMAL SPEECH, MOTOR FUNCTION INTACT, SENSORY FUNCTION INTACT MUSCULOSKELETAL: NECK NONTENDER, FULL RANGE OF MOTION, BACK NONTENDER, FULL RANGE OF MOTION, EXTREMITIES: NONTENDER, FULL RANGE OF MOTION SKIN: COLOR PINK, DRY, NO TURGOR, NO RASH, NO LACERATIONS, NO ABRASIONS, NO CONTUSIONS. LYMPHATIC: DEFERRED Results (Laboratory/Radiology) Laboratory/Radiology Laboratory Tests Test 03/09/25 19:26 03/09/25 23:20 White Blood Count 10.1 K/uL (4.8-10.8) Red Blood Count 4.74 MIL/uL (4.00-5.50) Hemoglobin 14.1 g/dL (12.0-16.0) Hematocrit 39.5 % (36-48) Mean Corpuscular Volume 83.3 fL (79-99) Mean Corpuscular Hemoglobin 29.7 pg (27.0-33.0) Mean Corpuscular Hemoglobin Concent 35.7 g/dL (32.0-36.0) Red Cell Distribution Width 12.4 % (11.0-15.5) Platelet Count 299 K/uL (130-400) Mean Platelet Volume 10.9 fL (7.5-10.5) H Immature Granulocyte % (Auto) 0.5 % (0-1) Neutrophils (%) (Auto) 76.3 % (40.0-77.0) Lymphocytes (%) (Auto) 15.6 % (21.0-51.0) L Monocytes (%) (Auto) 6.3 % (3.0-13.0) Eosinophils (%) (Auto) 0.8 % (0.0-8.0) Basophils (%) (Auto) 0.5 % (0.0-5.0) Neutrophils # (Auto) 7.7 K/uL (1.8-7.7) Lymphocytes # (Auto) 1.6 K/uL (1.0-4.8) Monocytes # (Auto) 0.6 K/uL (0.1-1.0) Eosinophils # (Auto) 0.08 K/uL (0.00-0.70) Basophils # (Auto) 0.05 K/uL (0.00-0.20) Absolute Immature Granulocyte (auto 0.05 K/uL (0-1) Nucleated Red Blood Cells 0.0 % (0.0-0.19) Sodium Level 139 mmol/L (136-145) Potassium Level 3.4 mmol/L (3.5-5.1) L Chloride Level 102 mmol/L (101-111) Carbon Dioxide Level 25 mmol/L (21-32) Blood Urea Nitrogen 15 mg/dL (7-18) Creatinine 0.8 mg/dL (0.5-1.0) Glomerular Filtration Rate Calc 74 mL/min (>90) Random Glucose 350 mg/dL (70-105) H Total Calcium 8.9 mg/dL (8.5-10.1) Total Creatine Kinase 30 U/L (21-232) Troponin I High Sensitivity 31 ng/L (4-50) Urine Color LIGHT-YELLOW (YELLOW) Urine Appearance CLEAR (CLEAR) Urine pH 6.5 (5.0-8.0) Urine Specific [place] 1.046 (1.001-1.031) Urine Protein NEGATIVE mg/dL (NEGATIVE) Urine Glucose (UA) >=1000 mg/dL (NEGATIVE) H Urine Ketones 5 mg/dL (NEGATIVE) H Urine Occult Blood NEGATIVE (NEGATIVE) Urine Nitrate NEGATIVE (NEGATIVE) Urine Bilirubin NEGATIVE mg/dL (NEGATIVE) Urine Urobilinogen 0.2 mg/dL (0.2-1.0) Urine Leukocyte Esterase 250 [place]/uL (NEGATIVE) H Urine RBC 2-5 /HPF (0-1) H Urine WBC 26-50 /HPF (0-1) H Urine Squamous Epithelial Cells RARE /HPF (0-2) Urine Bacteria RARE /HPF (None Seen) Urine Other Casts 1 /LPF (None Seen) Labs Reviewed?: Yes EKG Comment: PATIENT: NIESHA MORRISON MR#: [id number] : 1940 SEX: F AGE: 84 LOCATION: [facility] ROOM/BED: ORDER 12 REPORT#: [id number] REASON: ORDERING PHYSICIAN: GABE COYLE MD PROCEDURE: EKG - 12 LEAD EKG TRACING- TECHNICAL [facility] Test Date: 2025-03-09 Test Time: 19:17:37 Pat Name: NIESHA MORRISON Department: [facility] Room: Gender: 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 CT Scan Comment: REASON: MEDICAL PAIN TENDERNESS. ORDERING PHYSICIAN: JOSE FAJARDO NP PROCEDURE: ABD PEL W - CT ABDOMEN/PELVIS W/CONTRAST EXAM: CT Abdomen and Pelvis with IV contrast CLINICAL HISTORY: Pain and tenderness. TECHNIQUE: Thin collimated axial CT images of the abdomen and pelvis with intravenous contrast were obtained with sagittal and coronal reformatted images also submitted. CT scan is done according to ALARA (As Low As Reasonably Achievable). COMPARISON: Prior CT abdomen and pelvis dated 08/27/22. FINDINGS: Unremarkable visualized lung parenchyma. No focal abnormality within the pancreas, spleen, or adrenals. Mild hepatomegaly. The gallbladder is not visualized, likely surgically removed. Bilateral small renal parapelvic cysts measuring up to 2 cm on the left side. Moderate colonic diverticulosis with no acute diverticulitis. There is no obvious bowel wall thickening. Bowel loops are normal in caliber without evidence of obstruction or ileus. No acute appendicitis. There is no abnormality within the urinary bladder. A large 8.7 x 8.4 x 8 cm-sized pedunculated mass at the fundus of the uterus with multiple cystic components and calcifications, suggesting a uterine fibroid with cystic degeneration. The bilateral ovaries are not clearly visualized, likely atrophied. Abdominal and pelvic vessels are patent. No lymphadenopathy. No free fluid. There is no acute osseous abnormality. Multilevel thoracolumbar spondylosis. IMPRESSIONS: A large pedunculated mass at the fundus of the uterus with multiple cystic components and calcifications, suggesting a pedunculated uterine fibroid with cystic degeneration. There is a mild interval increase in the size of the fibroid. Mild hepatomegaly. Bilateral small renal parapelvic cysts. Moderate colonic diverticulosis with no acute diverticulitis. Multilevel thoracolumbar spondylosis. No other significant interval changes. /[place] DICTATED BY: RAMIRO FERNANDES Jr., MD DATE: 03/10/2521 ELECTRONICALLY SIGNED BY: RAMIRO FERNANDES Jr., MD DATE: 03/10/2521 ED Course ED Course Orders Procedure Category Date Status Time Vital Signs Per CPOE 03/09/25 Transmitted Routine 19:12 Chest 1vw RAD 03/09/25 Resulted 19:12 12 Lead Ekg Tracing- EKG 03/09/25 Complete Technical 19:12 Oxygen By Nc/Pulse Ox CPOE 03/09/25 Transmitted 19:12 Maintain Iv CPOE 03/09/25 Transmitted 19:12 Iv Insertion CPOE 03/09/25 Transmitted 19:12 Cardiac Monitoring CPOE 03/09/25 Transmitted 19:12 Pulse Oximetry With CPOE 03/09/25 Transmitted Vs And Prn 19:12 Cbc With Differential LAB 03/09/25 Complete 19:12 Activity: Br W/Brp CPOE 03/09/25 Transmitted With Assist 19:12 Creatine Kinase, Total LAB 03/09/25 Complete 19:12 Troponin I High LAB 03/09/25 Complete Sensitivity 19:12 Urinalysis Profile LAB 03/09/25 Complete 19:12 Basic Metabolic Panel LAB 03/09/25 Complete 19:12 Lidocaine Hcl 2% PHA 03/09/25 Complete Viscous (Lidocaine Hcl 20:00 Mag/Alum/Simeth 30ml PHA 03/09/25 Complete (Maalox Plus 30ml) 20:00 Dicyclomine Hcl PHA 03/09/25 Complete (Bentyl 10mg/5ml 20:00 Famotidine 20mg Vial PHA 03/09/25 Complete (Pepcid 20mg Vial) 20:00 Hydralazine 20mg Inj PHA 03/09/25 Complete (Apresoline 20mg In 20:00 Ondansetron 4mg Inj PHA 03/09/25 Complete (Zofran 4mg Inj) 21:00 Ketorolac PHA 03/09/25 Complete Tromethamine 30mg/Ml 21:00 Ct Abdomen/Pelvis CT 03/09/25 Resulted W/Contrast 22:03 Iohexol (Omnipaque) PHA 03/09/25 Complete 22:04 0.9%Nacl 1000ml (Ns PHA 03/09/25 Complete 1000ml) 22:30 Insulin Regular, PHA 03/09/25 Complete Human 3ml (Humulin R 22:24 Culture Urine ERIC 03/09/25 In Process 23:36 Ceftriaxone 1g Vial PHA 03/10/25 Complete (Rocephine 1g Inj) 00:00 Ceftriaxone 1g Vial PHA 03/10/25 Complete (Rocephine 1g Inj) 00:10 Morphine 2mg Syg PHA 03/10/25 Logged (Morphine 2mg Syg) 00:30 Potassium Bicarb/Cit PHA 03/10/25 Transmitted Ac 25meq (K-Lyte Ta 00:30 Edm Admit Bridge Order ADM 03/10/25 Transmitted 00:26 Current Medications Medications (Trade) Dose Ordered Sig/Carrie Route PRN Reason Start Time Stop Time Status Last Admin Dose Admin Al Hydroxide/Mg Hydroxide (MAALox PLUS 30ML) 30 ml ONCE ONCE PO 03/09/25 20:00 03/09/25 20:01 DC 03/09/25 20:03 Ceftriaxone Sodium 1 ml @ As Directed STK-MED ONCE .ROUTE 03/10/25 00:10 03/10/25 00:12 DC Ceftriaxone Sodium (ROCEphine 1G INJ) 1 gm ONCE ONCE IVPB 03/10/25 00:00 03/10/25 00:01 DC 03/10/25 00:13 Dicyclomine HCl (Bentyl 10mg/5ml Syrup) 10 mg ONCE ONCE PO 03/09/25 20:00 03/09/25 20:01 DC 03/09/25 20:03 Famotidine (Pepcid 20mg Vial) 20 mg ONCE ONCE IV 03/09/25 20:00 03/09/25 20:01 DC 03/09/25 20:04 Hydralazine HCl (APRESOLine 20MG INJ) 20 mg ONCE ONCE IM 03/09/25 20:00 03/09/25 20:01 DC 03/09/25 20:05 Insulin Human Regular (humuLIN R 100 UNIT/ML 3ML) 10 unit ONCE STAT IV 03/09/25 22:24 03/09/25 22:28 DC 03/09/25 22:34 Iohexol (Omnipaque) 35,000 mg STK-MED ONCE IV 03/09/25 22:04 03/09/25 22:04 DC Ketorolac Tromethamine (toRADol) 30 mg ONCE ONCE IVP 03/09/25 21:00 03/09/25 21:02 DC 03/09/25 22:00 Lidocaine HCl (Lidocaine HCl 2% Viscous) 10 ml ONCE ONCE PO 03/09/25 20:00 03/09/25 20:01 DC 03/09/25 20:03 Morphine Sulfate (morPHINE 2MG SYG) 2 mg ONCE ONCE IVP 03/10/25 00:30 03/10/25 00:31 UNV Ondansetron HCl (zoFRAN 4MG INJ) 4 mg ONCE ONCE IVP 03/09/25 21:00 03/09/25 21:02 DC 03/09/25 22:00 Sodium Chloride 1,000 ml @ 0 mls/hr ONCE ONCE IV 03/09/25 22:30 03/09/25 22:31 DC 03/09/25 22:37 Vital Signs Date Time Temp Pulse Resp B/P (MAP) Pulse Ox O2 Delivery O2 Flow Rate FiO2 03/09/25 23:51 98.8 75 18 157/67 95 Room Air* 0 21 03/09/25 19:43 98.8 78 18 186/66 99 Room Air* 0 21 03/09/25 19:10 98.6 87 20 203/90 95 Room Air 2100/PATIENT NOW STATES THE PAIN RESOLVED AFTER THE GI COCKTAIL HOWEVER IT RETURNED AND NOW IS LOCALIZED TO HER PERIUMBILICAL AREA. SHE STATES IT IS HURTING WORSE THAN BEFORE. TENDERNESS OVER PERIUMBILICAL AREA AND WE WILL FOLLOW UP WITH CAT SCAN TO RULE OUT DIVERTICULITIS VERSUS APPENDICITIS 2149/SPOKE WITH LASHAY AT [facility] REGARDING CT REPORT. HE SAID HE WILL HAVE IT EXPEDITED FOR ME SHORTLY 10:00 p.m. patient was signed out to me by Jose Fajardo, mid-level provider. Patient is an 84-year-old female who lives by herself began experiencing chest pain and epigastric discomfort. It just started an hour to 2 hours ago and apparently patient has a blood pressure machine and it was over 200 systolic. Patient did not feel well and she started having mild dizziness and she came into the ER for further evaluation. No history of any blurred vision diplopia motor weakness or seizure activity she does report initially when she came in a chest discomfort with no radiation. Patient did not take her blood pressure medications today and received hydralazine with improvement in the blood pressure. Temperature 98.6 pulse 87 respirations 20 blood pressure 203/90 with a pulse oximetry of 98% on room air Her chronic medical problems include diabetes mellitus, hypertension and gastritis Labs reviewed CBC is with a normal limits BNP 7 is significant for a blood g lucose of 350 and potassium of 3.4 troponins negative. Urinalysis was very abnormal with positive leuko esterase and increased WBC count consistent with UTI. As the patient was also complaining of epigastric pain a CT scan of the abdomen and pelvis is requested. 12:[address] abdomen and pelvis results reviewed she has a large uterine fibroid with a degenerative changes that were seen also in 2022. She has diverticuli without any active diverticulitis. I updated the patient on all the lab test results and CT scan results and reassured her and patient became very tearful stating she lives by herself and has felt extremely weak and has pains. In view of hypertensive emergency and other issues including a UTI I recommended admission to the hospital for optimal blood pressure control, pursuing an echocardiogram to evaluate diastolic dysfunction and hypertensive heart disease and also optimize glycemic control. She verbalized full understanding and would like to stay 12:30 a.m. patient accepted by Marcie mid-level provider for [facility] for admission and further management HEART Score Response (Comments) Value EKG: Repolarization changes 1 Age: > 65yrs (+2) 2 Risk Factors: 1-2 risk factors (+1) 1 Initial Troponin: Normal limit (0) 0 HEART Score Risk: Mod Risk for MACE (4-6) Total 4 Medical Decision Making MDM Differential diagnosis: Hypertensive urgency, hypertensive emergency, uncontrolled hypertension, unstable angina Rationale: Tests considered and ordered secondary to shared decision making include: labs, ECG and radiology Previous outside records reviewed: Old ER visits. Risk of complication and/or morbidity or mortality of patient management: None Medications-Per medication reconciliation Need for hospitalization: Patient does meet criteria for hospitalization. Need for emergency major/minor surgery: No There are no social concerns with this patient. Prescription drug management Prescriptions will include symptomatic care Patient's prior external medical records from other ER visits were reviewed by me as indicated. Prior testing and results from previous visits were reviewed. Prior tests were taken into account with medical decision making and resource utilization, independent historian/historians were used to obtain complete medical history. I independently interpreted the test that were performed, results were reviewed by me and considered findings on radiology if ordered. Medical management and examination interpretation discussions were had by me with other qualified healthcare professionals as indicated for the patient's care. Problem List Problem List: (1) Hypertensive emergency (2) Chest pain (3) Diabetes mellitus due to underlying condition, uncontrolled, with hyperglycemia (4) Hypokalemia (5) UTI (urinary tract infection) DX & DISP Disposition: Inpatient Decision to Admit Time: 00:17 Departure Impression: Primary Impression: Hypertensive emergency Additional Impressions: Chest pain, Diabetes mellitus due to underlying condition, uncontrolled, with hyperglycemia, Hypokalemia, UTI (urinary tract infection) Condition: Stable Additional Instructions: Patient was informed of all the diagnostic labs and procedures conducted in the emergency room today and demonstrated understanding of the results. I personally reviewed and interpreted all the diagnostic exams performed in the ER today. The patient will be admitted to the hospital for further treatment and evaluation. Disposition-admit to facility Condition-stable/guarded Course-uncertain at this time Pain status-decreased Assessment-exam unchanged Admission Certification- I certify that the patients status is appropriate and is based on my best clinical judgment and the patient's condition as documented in the medical records Referrals: GLORIA MCGUIRE MD (PCP) JOSE FAJARDO NP Mar 09, 2025 19:51 GABE COYLE MD Mar 10, 2025 00:18
--- NOTE | 2025-03-09 19:54 | HMCIMG ---
EXAM: CR Chest, 1 View. CLINICAL HISTORY: CHEST PAIN COMPARISON: None provided. FINDINGS: LUNGS: No active infiltrate PLEURAL SPACES: No pleural effusion or pneumothorax. MEDIASTINUM: Prominent cardiac silhouette BONES: No acute osseous abnormality. IMPRESSION: 1. Prominent cardiac silhouette 2. No active infiltrate /[place]
[2025-03-09] MEDS: MAG/ALUM/SIMETH 30 ML UDCUP PO ONE (20:03)
[2025-03-09] MEDS: LIDOCAINE HCL 2% VISCOUS 15 ML UDCUP PO ONE (20:03)
[2025-03-09] MEDS: DICYCLOMINE HCL 10 MG/5 ML ML PO ONE (20:03)
[2025-03-09] MEDS: FAMOTIDINE 20MG VIAL IV ONE (20:04)
[2025-03-09] MEDS ORDERED: IOHEXOL 350 MG/ML 100ML INFUS..BTL IV ONE (22:04)
--- NOTE | 2025-03-09 22:29 | NUR ---
HOME MEDS NOT AVAILABLE AT BEDSIDE
[2025-03-09] MEDS: 0.9%NACL 1000ML 1,000 ML IV ONE (22:37)
--- NOTE | 2025-03-09 23:23 | HMCIMG ---
EXAM: CT Abdomen and Pelvis with IV contrast CLINICAL HISTORY: Pain and tenderness. TECHNIQUE: Thin collimated axial CT images of the abdomen and pelvis with intravenous contrast were obtained with sagittal and coronal reformatted images also submitted. CT scan is done according to ALARA (As Low As Reasonably Achievable). COMPARISON: Prior CT abdomen and pelvis dated 08/27/22. FINDINGS: Unremarkable visualized lung parenchyma. No focal abnormality within the pancreas, spleen, or adrenals. Mild hepatomegaly. The gallbladder is not visualized, likely surgically removed. Bilateral small renal parapelvic cysts measuring up to 2 cm on the left side. Moderate colonic diverticulosis with no acute diverticulitis. There is no obvious bowel wall thickening. Bowel loops are normal in caliber without evidence of obstruction or ileus. No acute appendicitis. There is no abnormality within the urinary bladder. A large 8.7 x 8.4 x 8 cm-sized pedunculated mass at the fundus of the uterus with multiple cystic components and calcifications, suggesting a uterine fibroid with cystic degeneration. The bilateral ovaries are not clearly visualized, likely atrophied. Abdominal and pelvic vessels are patent. No lymphadenopathy. No free fluid. There is no acute osseous abnormality. Multilevel thoracolumbar spondylosis. IMPRESSIONS: A large pedunculated mass at the fundus of the uterus with multiple cystic components and calcifications, suggesting a pedunculated uterine fibroid with cystic degeneration. There is a mild interval increase in the size of the fibroid. Mild hepatomegaly. Bilateral small renal parapelvic cysts. Moderate colonic diverticulosis with no acute diverticulitis. Multilevel thoracolumbar spondylosis. No other significant interval changes. /[place]
[2025-03-09 23:34] LABS: APPEARANCE,URINE CLEAR (CLEAR); GLUCOSE, URINE (UA) >=1000 mg/dL (NEGATIVE); LEUKOCYTE ESTERASE ,URINE 250 Leu/uL (NEGATIVE); NITRATE,URINE NEGATIVE (NEGATIVE); OCCULT BLOOD,URINE NEGATIVE (NEGATIVE)
[2025-03-09 23:35] LABS: ADD UA MICROSCOPIC YES
[2025-03-09 23:37] LABS: OTHER CASTS, URINE 1 /LPF (None Seen); SQUAMOUS EPITHELIAL CELL,UR RARE /HPF (0-2)
[2025-03-10] MEDS: cefTRIAXone 1G VIAL 1 GM ONE (00:13)
[2025-03-10] MEDS ORDERED: LACTULOSE 20 GM/30 ML UDCUP PO PRN (01:00)
[2025-03-10] MEDS ORDERED: PoTASSium chloRIDE 20MEQ ER 20 MEQ ERTAB PO PRN (01:30)
[2025-03-10] MEDS ORDERED: DEXTROSE 50%-WATER 50 ML DISP.SYRIN IV PRN (01:30)
[2025-03-10] MEDS ORDERED: PoTASSium chl 10% ELIXIR 20MEQ 20 MEQ/15 ML UDCUP PO PRN (01:30)
[2025-03-10] MEDS ORDERED: GLUCAGON 1MG KIT 1 MG ML IM PRN (01:30)
[2025-03-10] MEDS: ASPIRIN 81MG CHEW TAB PO ONE (02:56)
[2025-03-10] MEDS: NITROGLYCERIN 1GM OINT 1 INCH/1GM TD SCH (02:56)
--- NOTE | 2025-03-10 03:21 | HP ---
[facility] HISTORY & PHYSICAL Date Patient Seen: Mar 10, 2025 Time of Visit: 02:19 Supervising Physician: Dr. Pacheco Nash Primary Care Physician: Dr. 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 Bilateral small renal parapelvic cysts, per CT on 03/09/2025. Moderate colonic diverticulosis Multilevel thoracolumbar spondylosis Diabetes mellitus with hyperglycemia Hypokalemia Acute on chronic kidney disease, GFR 74 CHRONIC PROBLEM LIST: Gastritis, DM type 2, fibromyalgia, GERD, anxiety, hypertension HPI: Ms. Sow is a 84-year-old female with a history of gastritis, DM type 2, fibromyalgia, GERD, anxiety, hypertension who presented to [facility] ED for evaluation of chest pain/ epigastric pain that radiated up to her throat and down to her umbilical area onset yesterday. The patient later also reported dizziness when she walks. She reported that the pain is worse after eating. She stated that she has multiple gastroenterology referrals, has had recent endoscopy, and endoscopy three months ago. She reported that she was found to have two polyps and they were removed. She stated that she only takes her PPI medications when she thinks it is needed. Patient denied chest pain, back pain, or shortness of breath. The patient presented to the ED with a blood pressure of 203/90, heart rate 87, respirations 20, 95% on room air, 98.6 F. She reported to the ED that she had not taking her hypertensive medications today because of the way that her stomach failed. In ED the patient received GI cocktail, Pepcid 20 mg IV, hydralazine 20 mg IM, Zofran, Toradol 30, morphine2 mg IV, insulin 10 units, NS L bolus, Rocephin1 g, and [id number] mEq[address] abdomen and pelvis with contrast: A large pedunculated mass at the fundus of the uterus with multiple cystic components and calcifications, suggesting a pedunculated uterine fibroid with cystic degeneration. There is a mild interval increase in the size of the fibroid. Mild hepatomegaly. Bilateral small renal parapelvic cysts. Moderate colonic diverticulosis with no acute diverticulitis. Multilevel thoracolumbar spondylosis. No other significant interval changes. Labs: CBC is with a normal limits BNP 7 is significant for a blood glucose of 350 and potassium of 3.4 troponins 31, GFR 3. Urinalysis + leuk EST. ED provider request patient be admitted with the diagnosis of hypertensive emergency, chest pain, DM with hyperglycemia, hypokalemia, and UTI. EKG: Sinus rhythm, heart rate 87 beats per minute Per external med rec/chart review: The patient was prescribed Ozempic on 02/09/2025. This might be contributing to her acute on chronic abdominal pain. I assessed the patient at bedside in ED 17. The patient's breathing was even, unlabored, in no distress. Reports anxiety from ED reported diagnostic results. She reports that she is dizzy each time she walks to the bathroom. She states that her sugars high because her unlabored gave her an electrolyte drink. The patient is very poor historian. She states her blood pressures at home are "good under 100" and that when she sees her doctor the "blood pressures are 140s" systolic. She reports that she can not remember if she took her blood pressure medication. She states that she lives by herself at home. I informed her of labs, diagnostics, and plan of care. She verbalized understanding and is in agreement with the plan. Plan and assessment are listed below. PAST MEDICAL HX: see above PAST SURGICAL HX: Cholecystectomy, SOCIAL HISTORY: No tobacco, ETOH, or illicit drug use Coded Allergies: adhesive (Unverified Allergy, Unknown, 03/30/19) codeine (Unverified Adverse Reaction, Severe, SHORTNESS OF BREATH, 04/27/13) CARDIAC ARREST REVIEW OF SYSTEMS: 12 point ROS reviewed with patient. Pertinent positives mentioned above. Otherwise negative. PHYSICAL EXAM: GENERAL: Alert, awake oriented x 3 HEENT: EOMI, Sclera non icteric, moist mucosa NECK: Supple, no JVD, trachea midline LUNGS: Clear breath sounds bilaterally. No wheezes HEART: Regular rate and rhythm. Normal S1 and S2, without murmurs ABD: Abdomen soft, nontender. Bowel sounds present EXT: No clubbing cyanosis or edema NEURO: Alert and oriented to x3, follows commands Vital Signs (last 8hr) Date Time Temp Pulse Resp B/P (MAP) Pulse Ox O2 Delivery O2 Flow Rate FiO2 03/10/25 03:05 98.4 82 18 167/65 95 Room Air* 0 21 03/10/25 02:57 85 190/79 03/09/25 23:51 98.8 75 18 157/67 95 Room Air* 0 21 03/09/25 19:43 98.8 78 18 186/66 99 Room Air* 0 21 LABS: Hematology Labs: Test 03/09/25 19:26 Range/Units White Blood Count 10.1 4.8-10.8 K/uL Red Blood Count 4.74 4.00-5.50 MIL/uL Hemoglobin 14.1 12.0-16.0 g/dL Hematocrit 39.5 36-48 % Mean Corpuscular Volume 83.3 79-99 fL Mean Corpuscular Hemoglobin 29.7 27.0-33.0 pg Mean Corpuscular Hemoglobin Concent 35.7 32.0-36.0 g/dL Red Cell Distribution Width 12.4 11.0-15.5 % Platelet Count 299 130-400 K/uL Mean Platelet Volume 10.9 H 7.5-10.5 fL Immature Granulocyte % (Auto) 0.5 0-1 % Neutrophils (%) (Auto) 76.3 40.0-77.0 % Lymphocytes (%) (Auto) 15.6 L 21.0-51.0 % Monocytes (%) (Auto) 6.3 3.0-13.0 % Eosinophils (%) (Auto) 0.8 0.0-8.0 % Basophils (%) (Auto) 0.5 0.0-5.0 % Neutrophils # (Auto) 7.7 1.8-7.7 K/uL Lymphocytes # (Auto) 1.6 1.0-4.8 K/uL Monocytes # (Auto) 0.6 0.1-1.0 K/uL Eosinophils # (Auto) 0.08 0.00-0.70 K/uL Basophils # (Auto) 0.05 0.00-0.20 K/uL Absolute Immature Granulocyte (auto 0.05 0-1 K/uL Nucleated Red Blood Cells 0.0 0.0-0.19 % Chemistry Labs: Test 03/09/25 19:26 Range/Units Sodium Level 139 136-145 mmol/L Potassium Level 3.4 L 3.5-5.1 mmol/L Chloride Level 102 101-111 mmol/L Carbon Dioxide Level 25 21-32 mmol/L Blood Urea Nitrogen 15 7-18 mg/dL Creatinine 0.8 0.5-1.0 mg/dL Glomerular Filtration Rate Calc 74 >90 mL/min Random Glucose 350 H 70-105 mg/dL Total Calcium 8.9 8.5-10.1 mg/dL Total Creatine Kinase 30 21-232 U/L Troponin I High Sensitivity 31 4-50 ng/L DIAGNOSTICS / RADIOLOGY RESULTS: [ ] PLAN -Admit to medical floor with continuous telemetry monitoring. -Troponin levels and EKG series. -Obtain a 2D echo in a.m., carotid Doppler, orthostatic vital signs. -Aspirin 81 mg p.o. daily. -Atorvastatin 40 mg PO daily. -Started lisinopril 20 mg p.o. (Obtained from external [facility] by [employer] rec. Last prescribed on 04/24/2024) -Rocephin2 mg IV daily. Follow urine cultures. -PRN medications for pain management, fever, N/V, constipation, hypertension. -Oxygen supplement as needed to maintain oxygen levels equal to or greater than 92% -Nitroglycerin sublingual as needed chest pain -Blood pressure checks every 4 hours and as needed. -Reconcile home medications once available. -Glucometer checks before meals and at bedtime with insulin regular sliding scale. -Blood pressure checks every 4 hours and as needed. - Monitor renal and liver function. -Monitor electrolytes and treat accordingly PRN -AM labs. -GI and DVT prophylaxis -Further plan/orders per hospitalization course. NEURO: Minimize central acting medications as possible. Maintain fall precautions, adequate lighting during the day PULMONARY: Supplemental 02 as needed. Maintain aspiration precautions at all times CARDIOVASCULAR: Follow hemodynamics. Vital signs per facility protocol GI & NUTRITION: Continue with nutritional support. Continue stool softeners and laxatives as needed. KIDNEYS & ELECTROLYTES: Strict monitoring of intake, output and overall fluid balance. Avoid nephrotoxic medications to the extent possible. Medications to be dosed according to renal function. Monitor electrolytes and replace as needed ENDOCRINE: Maintain blood glucose between 100-180 at all times. Hypoglycemia protocol in place INFECTIOUS DISEASE: Trend temperature, WBC and procalcitonin level Follow cultures, deescalate antibiotics as soon as possible. Panculture if new onset fever ONCOLOGY/HEMATOLOGY/COAGULATION: Monitor for s/s of bleeding Monitor hemoglobin, coagulation studies as needed SKIN: Pressure ulcer prevention per facility protocol Specialty mattress ORTHO/REHAB: Continue PT/OT Prophylaxis: Continue GI and DVT prophylaxis Code Status: Full Resuscitation Disposition: TBD ATTESTATION BY PHYSICIAN I reviewed the documentation, medical decision making, and treatment plan as noted by the mid-level provider above. I agree with the findings and plan of care. Pacheco Nash MD, [facility] Mar 10, 2025 03:21
--- NOTE | 2025-03-10 04:01 | NUR ---
paged [facility] to let them know that the patient had a CT with contrast and we have to wait 24hrs to complete the CT Head for the contrast to clear out
--- NOTE | 2025-03-10 04:35 | NUR ---
ORTHO VS LYING 154/67 SITTING- 163/54 STANDING 161/55
[2025-03-10 07:02] LABS: NUCLEATED RED BLOOD CELLS 0.0 % (0.0-0.19); PLATELET COUNT (AUTO) 242.0 K/uL (130-400); RED BLOOD CELL COUNT(AUTO) 4.27 MIL/uL (4.00-5.50); RED CELL DISTRIBUTION WIDTH 13.0 % (11.0-15.5); WHITE BLOOD COUNT (AUTO) 11.2 K/uL (4.8-10.8)
[2025-03-10 07:16] LABS: ASPARTATE AMINOTRANSFERASE 24.0 U/L (10-37); CREATININE 0.8 mg/dL (0.5-1.0); GLOMERULAR FILTR. RATE CALC 74.0 mL/min (>90); GLUCOSE,RANDOM 349.0 mg/dL (70-105); PHOSPHORUS 3.7 mg/dL (2.5-4.9); SODIUM SERUM 136.0 mmol/L (136-145); TOTAL PROTEIN, SERUM 6.8 g/dL (6.0-8.3); UREA NITROGEN, BLOOD 15.0 mg/dL (7-18)
[2025-03-10] MEDS: FAMOTIDINE 20MG TAB PO SCH (08:19)
[2025-03-10] MEDS: LISINOPRIL 20 MG TABLET PO SCH (08:19)
[2025-03-10] MEDS: ASPIRIN 81MG CHEW TAB PO SCH (08:20)
[2025-03-10] MEDS: ENOXAPARIN SODIUM 40 MG/0.4 ML SYRINGE SQ SCH (08:24)
--- NOTE | 2025-03-10 09:28 | NUR ---
DCP: HOME Pt lives at home alone. Only son Thomas zamora [phone] lives in [place], friend Helder Juarez [phone]. Pt states she can care for herself and her home with out assistance. Pt active, drives, no DME or in home care services at this time. PCP is Abdirashid and se uses [facility] in [place] for rx. Denies dc needs and will return home at dc Addendum: 03/10/25 at 0931 by DANISHA ALLRED Amended: Links added.
--- NOTE | 2025-03-10 11:13 | HMCIMG ---
US CAROTID DUPLEX REASON: dizziness TECHNIQUE: Exam was performed using spectral analysis and color flow imaging. FINDINGS: Color flow Doppler ultrasound shows normal-appearing bifurcations. There is no anatomic evidence of significant focal narrowing. Flow velocities and velocity ratios appear normal throughout. There is antegrade flow in both vertebral arteries. RIGHT CAROTID: CCA: 71 cm/sec ICA: 119 cm/sec Ratio: ICA/CCA: 1.7 ECA: 135 cm/sec Vertebral artery: 59 cm/sec LEFT CAROTID: CCA: 85 cm/sec. There is mild plaque seen in the left common carotid at the origin of the left internal carotid artery. ICA: 177 cm/sec, tortuous vessel with no stenosis Ratio: ICA/CCA: 2.1 ECA: 111 cm/sec Vertebral artery: 66 cm/sec IMPRESSION: Mild plaque seen in the left common carotid artery at the level of the bifurcation Otherwise Normal bilateral carotid Doppler ultrasound.
[2025-03-10] MEDS: MAGNESIUM 2GM PREMIX 50ML 50 ML IV PRN (11:48)
[2025-03-10 12:30] VITALS: BP 149/59; PULSE 71; RESP 15; TEMP 98.5
[2025-03-10] MEDS ORDERED: TRAZ-185 PO (13:34)
[2025-03-10] MEDS ORDERED: SUCR1TAB2 PO (13:34)
[2025-03-10] MEDS ORDERED: ESCI-8 PO (13:34)
[2025-03-10] MEDS ORDERED: METH-386 PO (13:34)
[2025-03-10] MEDS ORDERED: GLIP5TAB15 PO (13:34)
[2025-03-10] MEDS ORDERED: SEMA1PEN3 SQ (13:34)
[2025-03-10] MEDS ORDERED: METF-446 PO (13:34)
[2025-03-10 14:06] VITALS: BP 160/74; PULSE 77; RESP 15; TEMP 98.1
[2025-03-10 14:25] VITALS: BP 159/79; PULSE 74; RESP 18; TEMP 98.3
--- NOTE | 2025-03-10 14:25 | NUR ---
arrived to unit from ER alert and oriented x4, vitals stable systolic 150s, denies pain at this time, on room air, fall precautions in place
--- NOTE | 2025-03-10 15:56 | PN ---
[facility] PROGRESS NOTE Date Patient Seen: Mar 10, 2025 Time of Visit: 15:52 Supervising Physician: HU JOSEPH MD Primary Care Physician: Dr. Hiram Mendenhall Outpatient Specialists: Inpatient Consults: PROBLEM LIST: Hypertensive emergency, POA Epigastric/Chest pain, POA r/o ACS , acs ruled out , RESOLVED Acute on chronic abdominal pain, POA Acute complicated cystitis, POA Large pedunculated mass at the fundus of the uterus with multiple cystic compo nents and calcifications, suggesting a pedunculated uterine fibroid with cystic degeneration, per CT on 03/09/2025 Mild hepatomegaly, per CT on 03/09/2025. Bilateral small renal parapelvic cysts, per CT on 03/09/2025. Moderate colonic diverticulosis Multilevel thoracolumbar spondylosis Diabetes mellitus with hyperglycemia Hypokalemia Acute on chronic kidney disease, GFR 74 CHRONIC PROBLEM LIST: Gastritis, DM type 2, fibromyalgia, GERD, anxiety, hypertension INTERVAL HISTORY: Patient was seen and examined today by me at bedside, the patient is sitting up, having her lunch but stating she is unable to eat at given it has extreme spices. She denies any chest pain and states she has never had any chest pain she re ports she has had epigastric strict pain that radiates down to her belly button. At this time she states she feels well does not have any nausea or vomiting, no abdominal pain. Troponins have been negative x2, blood pressure continues to be uncontrolled wi th blood pressure readings ranging from 180 -149 mmHg. Laboratory data reveals mild leukocytosis of 11.2, she is on antibiotic therapy for urinary tract infection she is growing [id number] [id number]. Pending final reports. She did of note have an echocardiogram which has results pending. She also had a carotid Doppler which revealed mild plaque seen in the left common carotid artery bilateral carotid Doppler. A abdominal CT scan was remarkable for an incidental finding of large pedunculated mass at the fundus of the uterus with multiple cystic components and calcification suggesting a pedunculated uterine fibroid, mild hepatomegaly, bilateral small renal parapelvic cyst. With moderate colonic diverticulosis with no acute diverticulitis. Gallbladder has been surgically removed. REVIEW OF SYSTEMS: 12 point ROS reviewed with patient. Pertinent positives mentioned above. Otherwise negative. PHYSICAL EXAM: GENERAL: Alert, awake oriented x 3 HEENT: EOMI, Sclera non icteric, moist mucosa NECK: Supple, no JVD, trachea midline LUNGS: Clear breath sounds bilaterally. No wheezes HEART: Regular rate and rhythm. Normal S1 and S2, without murmurs ABD: Abdomen soft, nontender. Bowel sounds present EXT: No clubbing cyanosis or edema NEURO: Alert and oriented to x3, follows commands Vital Signs (last 8hr) Date Time Temp Pulse Resp B/P (MAP) Pulse Ox O2 Delivery O2 Flow Rate FiO2 03/10/25 14:25 98.2 74 18 159/79 95 Room Air 03/10/25 14:06 98.1 77 15 160/74 96 Room Air 03/10/25 12:30 98.4 71 15 149/59 95 Room Air 03/10/25 09:58 98.1 74 16 144/57 95 Room Air* 0 21 LABS: Hematology Labs: Test 03/10/25 06:47 03/09/25 19:26 Range/Units White Blood Count 11.2 H 4.8-10.8 K/uL Red Blood Count 4.27 4.00-5.50 MIL/uL Hemoglobin 12.7 12.0-16.0 g/dL Hematocrit 37.0 36-48 % Mean Corpuscular Volume 86.7 79-99 fL Mean Corpuscular Hemoglobin 29.7 27.0-33.0 pg Mean Corpuscular Hemoglobin Concent 34.3 32.0-36.0 g/dL Red Cell Distribution Width 13.0 11.0-15.5 % Platelet Count 242 130-400 K/uL Mean Platelet Volume 10.8 H 7.5-10.5 fL Nucleated Red Blood Cells 0.0 0.0-0.19 % Immature Granulocyte % (Auto) 0.5 0-1 % Neutrophils (%) (Auto) 76.3 40.0-77.0 % Lymphocytes (%) (Auto) 15.6 L 21.0-51.0 % Monocytes (%) (Auto) 6.3 3.0-13.0 % Eosinophils (%) (Auto) 0.8 0.0-8.0 % Basophils (%) (Auto) 0.5 0.0-5.0 % Neutrophils # (Auto) 7.7 1.8-7.7 K/uL Lymphocytes # (Auto) 1.6 1.0-4.8 K/uL Monocytes # (Auto) 0.6 0.1-1.0 K/uL Eosinophils # (Auto) 0.08 0.00-0.70 K/uL Basophils # (Auto) 0.05 0.00-0.20 K/uL Absolute Immature Granulocyte (auto 0.05 0-1 K/uL Chemistry Labs: Test 03/10/25 11:34 03/10/25 06:47 03/09/25 19:26 Range/Units Whole Blood Glucose 238 H 70-110 MG/DL Sodium Level 136 136-145 mmol/L Potassium Level 4.4 3.5-5.1 mmol/L Chloride Level 99 L 101-111 mmol/L Carbon Dioxide Level 30 21-32 mmol/L Blood Urea Nitrogen 15 7-18 mg/dL Creatinine 0.8 0.5-1.0 mg/dL Glomerular Filtration Rate Calc 74 >90 mL/min Random Glucose 349 H 70-105 mg/dL Total Calcium 8.9 8.5-10.1 mg/dL Phosphorus Level 3.7 2.5-4.9 mg/dL Magnesium Level 1.70 L 1.80-2.40 mg/dL Total Bilirubin 0.5 0.2-1.0 mg/dL Aspartate Amino Transf (AST/SGOT) 24 10-37 U/L Alanine Aminotransferase (ALT/SGPT) 22 12-78 U/L Alkaline Phosphatase 152 H 50-136 U/L Troponin I High Sensitivity 32 4-50 ng/L B-Type Natriuretic Peptide 229 H 0-100 pg/mL Total Protein 6.8 6.0-8.3 g/dL Albumin 3.3 L 3.5-5.0 g/dL Total Creatine Kinase 30 21-232 U/L DIAGNOSTICS / RADIOLOGY RESULTS: [ ] PLAN Orthostatic vital signs have been negative. Continue with gradual reduction of blood pressure -Aspirin 81 mg p.o. daily. -Atorvastatin 40 mg PO daily. -Started lisinopril 20 mg p.o. (Obtained from [employer] rec. Last prescribed on 04/24/2024) -Rocephin2 mg IV daily. Follow urine cultures. -PRN medications for pain management, fever, N/V, constipation, hypertension. -Oxygen supplement as needed to maintain oxygen levels equal to or greater than 92% -Nitroglycerin sublingual as needed chest pain -Blood pressure checks every 4 hours and as needed. -Glucometer checks before meals and at bedtime with insulin regular sliding scale. -Blood pressure checks every 4 hours and as needed. - Monitor renal and liver function. -Monitor electrolytes and treat accordingly PRN -AM labs. -GI and DVT prophylaxis NEURO: Minimize central acting medications as possible. Maintain fall precautions, adequate lighting during the day PULMONARY: Supplemental 02 as needed. Maintain aspiration precautions at all times CARDIOVASCULAR: Follow hemodynamics. Vital signs per facility protocol GI & NUTRITION: Continue with nutritional support. Continue stool softeners and laxatives as needed. KIDNEYS & ELECTROLYTES: Strict monitoring of intake, output and overall fluid balance. Avoid nephrotoxic medications to the extent possible. Medications to be dosed according to renal function. Monitor electrolytes and replace as needed ENDOCRINE: Maintain blood glucose between 100-180 at all times. Hypoglycemia protocol in place INFECTIOUS DISEASE: Trend temperature, WBC and procalcitonin level Follow cultures, deescalate antibiotics as soon as possible. Panculture if new onset fever ONCOLOGY/HEMATOLOGY/COAGULATION: Monitor for s/s of bleeding Monitor hemoglobin, coagulation studies as needed SKIN: Pressure ulcer prevention per facility protocol Specialty mattress ORTHO/REHAB: Continue PT/OT Prophylaxis: Continue GI and DVT prophylaxis Code Status: Full Resuscitation Disposition: KHADIJAH SHAH Mar 10, 2025 15:56
--- NOTE | 2025-03-10 18:03 | HMCSR ---
APPROVED REPORT EXAM: Two-dimensional and M-mode echocardiogram with Doppler and color Doppler. INDICATION ICD: Chest Pain Hypertension 2D Dimensions RVDd3.0 cmLVEF(%)64.3 (>50%)LVED Vol(simp.)84.0 mL IVSd1.1 (0.7-1.1cm)FS(%)35 %LVES Vol(simp.)33.0 mL LVDd5.0 (3.8-5.6cm)LA (2D)4.8 (1.6-4.0cm)LVEF(%, simp.)61 % PWd1.6 (0.7-1.1cm)Ao Root(2D)2.5 (2.0-3.7cm)LA ESV INDEX (BP)40.30 mL/m2 LVDs3.2 (2.5-4.0cm)LVOT diam2.1 (1.8-2.4cm) IVC diam1.2 cm Deformation Strain Apical 4-13.0 % Apical 2-13.1 % Apical 3-15.4 % Global Strain-13.8 % M-Mode Dimensions EPSS0.5 cm LA (MM)3.8 (1.6-4.0cm) Ao Root(MM)2.9 (2.0-3.7cm) Aortic Valve AoV Vmax1.9 m/Patricia Peak GR14.0 mmHgLVOT Vmax1.4 m/s AoV VTI0.4 mAo Mean GR6.5 mmHgLVOT VTI0.30 m AROLDO (VMAX)2.60 cm2Al P1/2T397 msAVA (VTI) 2.8 cm2 Mitral Valve MV E Vmax84.5 cm/sDECEL Utnx728 ms MV A Xsnx244.1 cm/sP 1/2 T131 ms E/A ratio0.8MVA (PHT)1.7 cm2 TDI E/E' Xofuqc55.5E/E' Ivtfurj69.0 Medial E' Peak V3.76 cm/sLateral E' Peak V6.48 cm/s Pulmonary Valve PV Vmax0.9 m/sPV VTI0.22 mPV Mean GR2.2 mmHg PV Peak GR3.5 mmHg Left Ventricle The left ventricle is normal size. No regional wall motion abnormalities noted. Moderate concentric l eft ventricular hypertrophy. Left ventricular systolic function is normal, estimated LVEF is 60-65%. Grade 1 diastolic dysfunction. Right Ventricle The right ventricle is normal size. The right ventricular systolic function is normal. Atria The left atrium is mildly dilated, 40ml/m2. The right atrium size is normal. Aortic Valve Aortic valve is trileaflet. The leaflets are mildly thickened and calcified. Mild to moderate aortic regurgitation. There is no aortic valvular stenosis. Mitral Valve The mitral valve is normal in structure. Trace mitral regurgitation. There is no mitral valve stenosi s. Tricuspid Valve The tricuspid valve is normal in structure. Trace tricuspid regurgitation. RVSP is normal. Pulmonic Valve Pulmonic valve is not well visualized. Great Vessels The aortic root is normal in size. The IVC is normal in size and collapses >50% with inspiration. Pericardium There is no pericardial effusion. Conclusion The left atrium is mildly dilated, 40ml/m2. Moderate concentric left ventricular hypertrophy. No regional wall motion abnormalities noted. Left ventricular systolic function is normal, estimated LVEF is 60-65%. Grade 1 diastolic dysfunction. Mild to moderate aortic regurgitation. Trace mitral regurgitation. Trace tricuspid regurgitation. PASP is normal. There is no pericardial effusion.
[2025-03-10 18:30] VITALS: O2SAT 94
[2025-03-10 20:00] VITALS: BP 138/86; PULSE 76; RESP 20; TEMP 99
[2025-03-11] VITALS: BP 158/85; PULSE 85; RESP 20; TEMP 98.6
--- NOTE | 2025-03-11 01:59 | HMCIMG ---
EXAM: CT examination of the Brain without contrast. CLINICAL HISTORY: Dizziness. TECHNIQUE: Thin collimated axial CT images of the brain were obtained with sagittal and coronal reformatted images also submitted. CT scan done according to ALARA (As Low as Reasonably Achievable). CONTRAST USED: None. COMPARISON: None. FINDINGS: No acute intracranial abnormality is present. Mild generalized brain atrophy. Mild chronic small vessel ischemic disease. No acute cortical infarction, hemorrhage, mass or mass effect. No hydrocephalus or abnormal extra-axial fluid collections. The posterior fossa is unremarkable. The skull base and calvarium are intact. Hyperostosis frontalis interna. The included portions of the paranasal sinuses and mastoid air cells are clear. IMPRESSION: No acute intracranial abnormality is present. Mild generalized brain atrophy. Mild chronic small vessel ischemic disease. /[place]
[2025-03-11 04:00] VITALS: BP 154/80; PULSE 84; RESP 20; TEMP 98.2
[2025-03-11 04:15] LABS: NUCLEATED RED BLOOD CELLS 0.0 % (0.0-0.19); PLATELET COUNT (AUTO) 214.0 K/uL (130-400); RED BLOOD CELL COUNT(AUTO) 4.08 MIL/uL (4.00-5.50); RED CELL DISTRIBUTION WIDTH 12.9 % (11.0-15.5); WHITE BLOOD COUNT (AUTO) 10.4 K/uL (4.8-10.8)
[2025-03-11 04:34] LABS: CREATININE 0.6 mg/dL (0.5-1.0); GLOMERULAR FILTR. RATE CALC 90.0 mL/min (>90); GLUCOSE,RANDOM 193.0 mg/dL (70-105); PHOSPHORUS 3.6 mg/dL (2.5-4.9); SODIUM SERUM 141.0 mmol/L (136-145); UREA NITROGEN, BLOOD 19.0 mg/dL (7-18)
[2025-03-11 08:00] VITALS: BP 151/80; PULSE 78; RESP 18; TEMP 98.4; O2SAT 93
[2025-03-11] MEDS: ZOSYN 3.375GM +NS 50ML IV SCH (08:33)
[2025-03-11] MEDS: amLODIPine 5 MG TAB PO SCH (08:34)
--- NOTE | 2025-03-11 11:04 | EKG ---
[facility] Test Date: 2025-03-11 Test Time: 07:01:16 Pat Name: NIESHA MORRISON Department: [facility] Room: 428 1 Gender: F Fire Control Assistant: [id number] : 1940 Requested By: MELISSA SMITH Order Number: [id number] Reading MD: Manan Jernigan Measurements Intervals Tiro Rate: 132 P: 0 NV: 0 QRS: -24 QRSD: 80 T: 143 QT: 326 QTc: 483 Interpretive Statements Atrial fibrillation with rapid ventricular response Marked ST abnormality, possible inferolateral subendocardial injury Compared to ECG 03/09/2025 19:17:37 ST (T wave) deviation now present Sinus rhythm no longer present Left ventricular hypertrophy no longer present Early repolarization no longer present Electronically Signed On 03-13-2025 00:02:30 CDT by Manan Jernigan Please click the below link to view image of tracing.
[2025-03-11 12:00] VITALS: BP 132/45; PULSE 77; RESP 18; TEMP 99
[2025-03-11] MEDS ORDERED: AMLO5TAB4 PO (14:58)
[2025-03-11] MEDS ORDERED: LEVO750T68 PO (14:58)
[2025-03-11] MEDS ORDERED: LISI20TA24 PO (14:58)
[2025-03-11] MEDS ORDERED: DEXL30CA3 PO (15:05)
--- NOTE | 2025-03-11 15:06 | DS ---
[facility] DISCHARGE SUMMARY Date Patient Seen: Mar 11, 2025 Time of Visit: 14:58 Supervising Physician: [ ] Primary Care Physician: Dr. 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 Bilateral small renal parapelvic cysts, per CT on 03/09/2025. Moderate colonic diverticulosis Multilevel thoracolumbar spondylosis Diabetes mellitus with hyperglycemia Hypokalemia Acute on chronic kidney disease, GFR 74 CHRONIC PROBLEM LIST: Gastritis, DM type 2, fibromyalgia, GERD, anxiety, hypertension HOSPITAL COURSE: Ms. Sow is a 84-year-old female with a history of gastritis, DM type 2, fibromyalgia, GERD, anxiety, hypertension who presented to [facility] ED for evaluation of epigastric pain that radiated down to her umbilical area onset yesterday. The patient later also reported dizziness when she walks. She reported that the pain is worse after eating. She stated that she has multiple gastroenterology referrals, has had recent endoscopy, and endoscopy three months ago. She reported that she was found to have two polyps and they were removed. She stated that she only takes her PPI medications when she thinks it is needed. Patient denied chest pain, back pain, or shortness of breath. The patient presented to the ED with a blood pressure of 203/90, heart rate 87, respirations 20, 95% on room air, 98.6 F. She reported to the ED that she had not taking her hypertensive medications today because of the way that her stomach failed. In ED the patient received GI cocktail, Pepcid 20 mg IV, hydralazine 20 mg IM, Zofran, Toradol 30, morphine2 mg IV, insulin 10 units, NS L bolus, Rocephin1 g, and [id number] mEq[address] CT abdomen and pelvis with contrast: A large pedunculated mass at the fundus of the uterus with multiple cystic components and calcifications, suggesting a pedunculated uterine fibroid with cystic degeneration. There is a mild interval increase in the size of the fibroid. Mild hepatomegaly. Bilateral small renal parapelvic cysts. Moderate colonic diverticulosis with no acute diverticulitis. Multilevel thoracolumbar spondylosis. No other significant interval changes. Labs: CBC is with a normal limits BNP 7 is significant for a blood glucose of 350 and potassium of 3.4 troponins 31, GFR 3. Urinalysis + leuk EST. ED provider request patient be admitted with the diagnosis of hypertensive emergency, chest pain, DM with hyperglycemia, hypokalemia, and UTI. EKG: Sinus rhythm, heart rate 87 beats per minute Per external med rec/chart review: The patient was prescribed Ozempic on 02/09/2025. This might be contributing to her acute on chronic abdominal pain. Patient was very adamant on her stay that she has never felt any chest pain . It has been epigastric and radiated down to her umblicus . She personally requested cancellation of her cardiology consult that was placed on admission . Further workup that included an Echocardiogram revealed moderate LVH, normal LVEF of 60-65% with stage I diastolic dysfunction. [id number] aortic regurgitation with trace mitral regurgitation and trace tricuspid regurgitation with no pericardial effusion. a Carotid Doppler revealing mild plaque seen in the left common carotid artery at the level of the bifurcation otherwise normal bilateral carotid Dopplers. Head CT WO : No acute intracranial abnormality, mild generalized brain atrophy, mild chronic small-vessel ischemic disease.. Blood Pressure medications were optimized , BP improved [id number] gradually. UA cultures + for Klebsiella ESBL, Sensitive to Levaquin. Patient given dose of Zosyn prior to DC and RX sent to Pharmacy . All questions were answered and encouraged blood pressure log and close follow up with PCP . . Of note we did encourage the patient to stop Ozempic and take a holiday to monitor her GI symptoms . will attempt DExilant outpatient and close GI follow up as well. New Medications: Dexlansoprazole (Dexilant) 30 Mg Cap. 1 CAP PO DAILY for 30 Days, #30 CAP 0 Refills Levofloxacin (Levaquin 750Mg Tabs) 750 Mg Tablet 1 TAB PO DAILY for 10 Days, #10 TAB 0 Refills Amlodipine Besylate (Norvasc 5Mg Tab) 5 Mg Tablet 5 MG PO DAILY, #30 TAB Lisinopril (Lisinopril) 20 Mg Tablet 20 MG PO DAILY, #30 TAB Continued Medications: Escitalopram Oxalate (Escitalopram Oxalate) 10 Mg Tablet 1 TAB PO DAILY for 30 Days, #30 TAB 0 Refills Glipizide (Glipizide) 5 Mg Tablet 1 TAB PO DAILY for 30 Days, #30 TAB 0 Refills Metformin HCl (Metformin HCl) 1,000 Mg Tablet 1 TAB PO DAILY for 30 Days, #60 TAB 0 Refills Methimazole (Methimazole) 5 Mg Tablet 1 TAB PO DAILY for 30 Days, #30 TAB 0 Refills Sucralfate (Sucralfate) 1 Gram Tablet 1 TAB PO BID for 30 Days, #120 TAB 0 Refills Trazodone HCl (Trazodone HCl) 50 Mg Tablet 1 TAB PO HS for 30 Days, #30 TAB 0 Refills Discontinued Medications: Semaglutide (Ozempic) 1 Mg/0.75 Ml (4 Mg/3 Ml) Pen.injctr 0.5 MG SQ QWEEK for 30 Days, #3 ML 0 Refills PHYSICAL EXAM: GENERAL: Alert, awake oriented x 3 HEENT: EOMI, Sclera non icteric, moist mucosa NECK: Supple, no JVD, trachea midline LUNGS: Clear breath sounds bilaterally. No wheezes HEART: Regular rate and rhythm. Normal S1 and S2, without murmurs ABD: Abdomen soft, nontender. Bowel sounds present EXT: No clubbing cyanosis or edema NEURO: Alert and oriented to x3, follows commands FOLLOW-UP: Follow-up with PCP in 2-3 days BLOOD PRESSURE LOG ENCOURAGED RECOMMENDATIONS: See Discharge Instructions This case was seen and discussed with my supervising physician. More than 30 minutes spent on discharge process, including evaluation of the patient, discussion with nursing staff, medication reconciliation and follow-up appointments KHADIJAH LANZA Mar 11, 2025 15:06
[2025-03-11 16:00] VITALS: BP 134/69; PULSE 75; RESP 18; TEMP 98.3
--- NOTE | 2025-03-11 18:00 | NUR ---
discharged patient given printed discharge paperwork, educated patient regarding diet, activity, follow ups, medications, signs and symptoms to report/return to ER. answered patient questions, patient understood.
== END 2025-03-11 18:00 | disposition home or self-care (01) ==
LOC: EDH 19:09 → EDHIP 03-10 00:47 → 4DH 03-10 14:25
PROVIDERS: ADMIT Internal Medicine Critical Care Medicine; ATTEND Internal Medicine Critical Care Medicine
DX: I16.1 Hypertensive emergency (principal); N30.00 Acute cystitis without hematuria; N28.1 Cyst of kidney, acquired; R16.0 Hepatomegaly, not elsewhere classified; K57.30 Diverticulosis of large intestine without perforation or abscess without bleeding; M47.815 Spondylosis without myelopathy or radiculopathy, thoracolumbar region; E11.65 Type 2 diabetes mellitus with hyperglycemia; R42 Dizziness and giddiness; E87.6 Hypokalemia; N17.9 Acute kidney failure, unspecified; K21.9 Gastro-esophageal reflux disease without esophagitis; I12.9 Hypertensive chronic kidney disease with stage 1 through stage 4 chronic kidney disease, or unspecified chronic kidney disease; E11.22 Type 2 diabetes mellitus with diabetic chronic kidney disease; N18.9 Chronic kidney disease, unspecified; G89.29 Other chronic pain; D25.9 Leiomyoma of uterus, unspecified; I65.22 Occlusion and stenosis of left carotid artery; F41.9 Anxiety disorder, unspecified; M79.7 Fibromyalgia; Z79.4 Long term (current) use of insulin; Z79.82 Long term (current) use of aspirin; Z79.899 Other long term (current) drug therapy; Z88.5 Allergy status to narcotic agent; Z90.49 Acquired absence of other specified parts of digestive tract; Z88.8 Allergy status to other drugs, medicaments and biological substances
CPT/HCPCS: 96372 ×2; 96375 ×3; 99285; 82550; 84484 ×3; 80048 ×2; 85025; 87086 ×2; 81001; 36415 ×3; 71045; 74177; 93005 ×2; 96365; 96366 ×2; 83735 ×2; 84100 ×2; 80053; 83880; 85027 ×2; 87186; 82948 ×5; 70450; 93306; 93356; 93880; 96376; 96367; J1815 ×2; J3490 ×2; J0360; J2405 ×2; J1885; Q9967; G0378 ×41; J3475 ×2; J2270; J0696; J2543; J1650

== ENCOUNTER → 2025-06-06 | Outpatient (CLI) | payer OTHER, MEDICARE ==
[~2025-06-06] MED LIST changes: -ALBU8.5H8 IH; +AMLO5TAB4 PO; +APIX5TAB PO; +ATOR40TA69 PO; -BENZ-39 PO; +DEXL30CA3 PO; +ESCI-8 PO; -IBUP-2070 PO; +LISI20TA24 PO; +METH-386 PO; -PRED20TA3 PO; +SPIR25TA6 PO; +SUCR1TAB2 PO; -TRAM50TA4 PO; +TRAZ-185 PO
--- NOTE | 2025-06-06 12:57 | HMCIMG ---
DOUBLE CONTRAST UPPER GI SERIES: CLINICAL HISTORY: Epigastric pain chest pain unspecified gastroesophageal reflux disease Finding: The study was performed using provocative maneuvers After swallowing effervescent crystal and thick barium, there is no definite intrinsic or extrinsic lesion seen in the esophagus. There is small to moderate hiatal hernia with grade 1 esophageal reflux. The stomach is normal in size, shape, and configuration. The rugal folds appear to be normal. The duodenal bulb, duodenal sweep, and upper jejunum appear to be normal. There is a duodenal diverticulum seen in the third portion of the duodenum Fluoroscopy time: 0.6 minutes IMPRESSION: Grade 1 esophageal reflux with moderate-sized hiatal hernia. Duodenal diverticulum Otherwise normal double contrast upper GI series
== END | disposition home or self-care (01) ==
LOC: RAH 09:24
PROVIDERS: ATTEND Internal Medicine Gastroenterology
DX: K21.9 Gastro-esophageal reflux disease without esophagitis (principal); K57.10 Diverticulosis of small intestine without perforation or abscess without bleeding; K44.9 Diaphragmatic hernia without obstruction or gangrene; R10.30 Lower abdominal pain, unspecified; R07.9 Chest pain, unspecified; R10.13 Epigastric pain
CPT/HCPCS: 74240